=== PATIENT | male | born 1960 | race Caucasian/White ===

== ENCOUNTER 2019-06-18 10:40 | Outpatient (RCR) | payer BC, SELFPAY ==
[2019-05-30 11:13] VITALS: BMI 23.1
== END 2019-09-16 23:59 | disposition home or self-care (01) ==
LOC: ANHDMC 10:40
PROVIDERS: Visit Provider Internal Medicine
DX: E11.40 Type 2 diabetes mellitus with diabetic neuropathy, unspecified (principal); I69.854 Hemiplegia and hemiparesis following other cerebrovascular disease affecting left non-dominant side; R26.89 Other abnormalities of gait and mobility; Z71.3 Dietary counseling and surveillance; Z71.89 Other specified counseling
CPT/HCPCS: 97802; G0108

== ENCOUNTER 2019-10-17 09:03 | Outpatient (CLI) | payer BC, SELFPAY ==
--- NOTE | ~2019-10-17 | DEXA_ITS ---
Bone Density Report Name: Ubaldo Velasquez Age: 59 Sex: Male Ethnicity: White Date of : 1960 Indication: prior fracture; Referring Provider: Spencer, Fercho Lindsay Study: Bone densitometry was performed. Exam Date: October 17, 2019 Accession number: [id number] Bone Density: Region BMD T-score Z-score Classification AP Spine (L1-L4) 0.814 -2.5 -1.8 Osteoporosis Femoral Neck (Left) 0.432 -3.7 -2.7 Osteoporosis Total Hip (Left) 0.583 -3.0 -2.5 Osteoporosis World Health Organization criteria for BMD impression classify patients as: Normal (T-score at or above -1.0), Osteopenia (T-score between -1.0 and -2.5), or Osteoporosis (T-score at or below -2.5). 10-year Fracture Risk: FRAX not reported because: Some T-score for Spine Total or Hip Total or Femoral Neck at or below -2.5 Prior hip or vertebral fracture Clinical Information Provided by Patient: Have had a previous hip or vertebral fracture Has had a low trauma fracture Patient maximum height was 70 No regular weight bearing exercise Drinks caffeinated beverages Impression: The patient has established osteoporosis, based on the Left Femoral Neck T-score and the existence of a prior fracture. The patient has risk factors, including: previous fracture. Discussion: HIGH RISK OF FRACTURE. BONE DENSITY IS UNDESIRABLY LOW AT ONE OR MORE SKELETAL SITES, CONSISTENT WITH OSTEOPOROSIS. This patient's lowest T-score, in a patient who has previously fractured, meets the World Health Organization's (WHO) criteria for severe osteoporosis. In untreated patients, the risk of osteoporotic fracture increases approximately two-fold for each 1.0 SD decrease in T-score. Low bone density is not the only risk factor for fracture; also consider factors such as patient's age, frailty or poor health, risk of falling, risk of injury, previous osteoporotic fracture, family history of osteoporosis, cigarette smoking, low body weight, etc. Not everyone with low bone mineral density has osteoporosis; osteomalacia and other metabolic bone disorders should also be considered. Patients who have osteoporosis should be evaluated for specific diseases and conditions (secondary causes) that may cause or contribute to bone loss. The National Osteoporosis Foundation (NOF) recommends pharmacologic intervention for men with BMD at this level (a T-score of -2.5 or below). The patient should follow a healthful lifestyle (good nutrition with adequate calcium and vitamin D, and appropriate weight-bearing exercise). Follow-Up: Consider a repeat BMD and Vertebral Fracture Assessment (VFA) exam in 2 years or sooner if medically necessary, to reassess this patient's status. Reported by: CONNER on 10/17/2019 9:58:00 AM. Reviewed, dictated and finalized at location APavithra ANDERSON
== END 2019-10-17 09:04 | disposition home or self-care (01) ==
PROVIDERS: PCP Internal Medicine; Visit Provider Internal Medicine
DX: M81.0 Age-related osteoporosis without current pathological fracture (principal)
CPT/HCPCS: 77080

== ENCOUNTER 2020-03-01 03:28 | Inpatient (IN) | payer BC, SELFPAY ==
[2020-03-01] VITALS (38 sets, daily range): BP systolic 88–103; BP diastolic 32–55; PULSE 52–87; RESP 15–22; TEMP 35.8–37.8; O2SAT 90–100; BMI 27.3
--- NOTE | ~2020-03-01 | US_ITS ---
US right upper quadrant INDICATION: Elevated liver function tests PROCEDURE: Realtime right upper abdominal ultrasound. COMPARISON: No prior studies for comparison. FINDINGS: The pancreas is normal without focal mass or pancreatic ductal dilation. Liver echotexture is increased, consistent with fatty infiltration. There is normal directional flow in the portal ve in. The gallbladder is normal without stones, gallbladder wall thickening or pericholecystic fluid. Comm on bile duct measures 4 mm. No sonographic Lentz's sign. IMPRESSION: 1: Hepatic steatosis. Reviewed, dictated and finalized at location A. IMPRESSION: 1: Hepatic steatosis.
--- NOTE | ~2020-03-01 | CT_ITS ---
EXAMINATION: CT abdomen pelvis wo con DATE: 03/01/2020 05:18 INDICATION: Transaminitis TECHNIQUE: Computed tomography (CT) of the abdomen and pelvis was performed without intravenous contr ast. The dose-length product (DLP) was 1203.35 mGy-cm. Automated exposure control and iterative recon struction technique were employed. COMPARISON: 06/07/2019 FINDINGS: There are small pleural effusions, left greater than right, with associated passive atelect asis of the lower lobes. Cardiomegaly is noted. Hypoattenuation of the liver adjacent to the ligament um teres is consistent with focal fatty infiltration. The spleen, gallbladder, and adrenal glands are normal. There is fatty replacement of the pancreas. Nonobstructing stones of the left kidney measure up to 3 mm. The right kidney is unremarkable. There is calcified atherosclerosis of the aorta and ma ny of the other arteries. The appendix is normal. There is wall thickening of the rectum. There is bi lateral inguinal lymphadenopathy. There is mild lumbar spondylosis. There is circumferential thickeni ng of the bladder wall. IMPRESSION: 1. Rectal wall thickening which could reflect colitis or possibly neoplasm. Recommend correlation wit h colonoscopy history. 2. Circumferential bladder wall thickening which can be seen in the setting of cystitis or chronic ou tlet obstruction. 3. Bilateral lymphadenopathy, likely reactive. 4. Small pleural effusions with bibasilar atelectasis. Reviewed, dictated and finalized at location A. IMPRESSION: 1. Rectal wall thickening which could reflect colitis or possibly neoplasm. Rec ommend correlation with colonoscopy history. 2. Circumferential bladder wall thickening which can be seen in the setting of cystitis or chronic outlet obstruction. 3. Bilateral lymphadenopathy, likely reactive. 4. Small pleural effusions with bibasilar atelectasis.
--- NOTE | ~2020-03-01 | XR_ITS ---
EXAMINATION: XR chest 1V portable INDICATION: Shortness of breath TECHNIQUE: Portable AP chest at 0414 hours COMPARISON: 06/07/2019 FINDINGS: There is mild atelectasis of the lung bases. A small left pleural effusion is present. Card iomegaly is noted. There is no pneumothorax. A right upper extremity PICC courses into and coils in t he right neck. Median sternotomy wires and mediastinal surgical clips are seen, likely from prior cor onary artery bypass grafting. A cardiac monitoring device projects over the left lower chest wall. IMPRESSION: 1. Bibasilar atelectasis. 2. Small left pleural effusion. 3. Right upper extremity PICC coursing into the right neck. This finding was discussed with Lori Simpson at 1008 hours on 03/01/2020. Reviewed, dictated and finalized at location A. IMPRESSION: 1. Bibasilar atelectasis. 2. Small left pleural effusion. 3. Right upper extremity PICC coursing into the right neck. This finding was di scussed with ESEQUIEL Simpson at 1008 hours on 03/01/2020.
--- NOTE | ~2020-03-01 | XR_ITS ---
EXAMINATION: XR chest port-a-cath/central DATE: 03/02/2020 13:44 INDICATION: Central line placement. TECHNIQUE: A single frontal view of the chest was obtained. COMPARISON: Chest 1 view 03/01/2020, CT abdomen and pelvis 03/01/2020 FINDINGS: There is mild atelectasis at left lung base. No pleural effusion or pneumothorax. The heart size is normal. Median sternotomy wires and mediastinal surgical clips are seen, likely from prior c oronary artery bypass grafting. A left internal jugular central venous catheter is seen with tip at t he superior cavoatrial junction. A right upper extremity peripherally inserted central venous cathete r (PICC) is seen with tip folded on itself in the right internal jugular vein. IMPRESSION: 1. Central line tip at superior cavoatrial junction. 2. PICC tip folded on itself in the right internal jugular vein. 3. Mild atelectasis at left lung base. Reviewed, dictated and finalized at location B.
--- NOTE | ~2020-03-01 | CT_ITS ---
EXAMINATION: CT brain wo con EXAM DATE: 03/06/2020 13:15 INDICATION: Change in neuro status, change in pupils. TECHNIQUE: Spiral CT of the head was performed without contrast. Axial, coronal and sagittal images were reviewed. The dose-length product (DLP) for this examination was 681.00 mGy-cm. The exposure w as tailored according to patient size, and iterative reconstruction (ASIR) was used as additional dos e reduction technique. Comparison is made to prior examination from 02/19/2019. FINDINGS: Interval development of hypodensity within the right cerebellum measuring about 1 cm, consi stent with subacute to chronic infarction, new compared to last year. Punctate old right thalamic lac unar infarctions which are unchanged. There is old small right frontal lobe infarction. Mild microang iopathy and moderate cerebral atrophy. No extra-axial collections, mass or acute intracranial hemorrh age. Right-sided cataract surgery. IMPRESSION: 1. 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 2. 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 Age related findings. Reviewed, dictated and finalized at location A. IMPRESSION: 1. Interval development of small right cerebellar infarction, probably subacut e to chronic in age. 2. 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 Age related findings.
--- NOTE | ~2020-03-01 | US_ITS ---
EXAMINATION: US renal BI DATE: 03/01/2020 14:23 INDICATION: Acute kidney injury TECHNIQUE: Multiple grayscale and Doppler ultrasound images of the kidneys were obtained. COMPARISON: None. FINDINGS: The right kidney measures 11.0 x 6.0 x 7.0 cm. The left kidney measures 11.0 x 5.6 x 5.3 cm . The kidneys demonstrate normal parenchymal echogenicity. There is no hydronephrosis. The bladder is incompletely distended but appears to demonstrate diffuse wall thickening.. IMPRESSION: 1. Normal kidneys without hydronephrosis. 2. Apparent wall thickening of the bladder which could reflect cystitis or chronic outlet obstruction . Reviewed, dictated and finalized at location A. IMPRESSION: 1. Normal kidneys without hydronephrosis. 2. Apparent wall thickening of the bladder which could reflect cystitis or market research intern dylan outlet obstruction.
--- NOTE | ~2020-03-01 | XR_ITS ---
EXAMINATION: XR foot RT 2V DATE: 03/02/2020 13:44 INDICATION: Right foot pain. Osteomyelitis. TECHNIQUE: 2 views of right foot were obtained. COMPARISON: Right ankle radiographs 11/10/2018 FINDINGS: There are extensive erosions of the right calcaneal tuberosity. Osteopenia is noted. No fra cture. There is mild osteoarthritis of some the interphalangeal joints. Vascular calcifications are n oted. IMPRESSION: 1. Extensive erosions of right calcaneal tuberosity, consistent with osteomyelitis. Reviewed, dictated and finalized at location B. IMPRESSION: 1. Extensive erosions of right calcaneal tuberosity, consistent with osteomyeli tis.
--- NOTE | ~2020-03-01 | XR_ITS ---
EXAMINATION: XR chest 1V portable EXAM DATE: 03/03/2020 05:59 INDICATION: Pneumonia. Sepsis. TECHNIQUE: Portable AP frontal chest x-ray was obtained. Comparison is made to prior examination from 03/02/2020. FINDINGS: Small amount of left basilar atelectasis or pneumonia. There is a left-sided IJ venous line . The cardiomediastinal silhouette is prominent but magnified on this AP technique. There is no pneum othorax suspected. There are no pleural effusions. Sternotomy wires are present without findings to s uggest sternal dehiscence. Accounting for differences in technique, there is no significant interval change. IMPRESSION: Small amount of left basilar atelectasis or pneumonia unchanged. Reviewed, dictated and finalized at location A.
--- NOTE | ~2020-03-01 | XR_ITS ---
EXAMINATION: XR chest 1V portable DATE: 03/04/2020 06:30 INDICATION: Sepsis. TECHNIQUE: A single frontal view of the chest was obtained. COMPARISON: Chest one view 03/03/2020, CT abdomen and pelvis 03/01/2020 FINDINGS: There are airspace opacities in the lower lung zones. No pleural effusion or pneumothorax. The heart size is normal. Median sternotomy wires and mediastinal surgical clips are seen, likely fro m prior coronary artery bypass grafting. A left internal jugular central venous catheter is seen with tip at the superior cavoatrial junction. There is an electronic implant in left anterior chest wall. IMPRESSION: 1. Airspace opacities in the lower lung zones with slight worsening on the left, consistent with atel ectasis versus pneumonia. Reviewed, dictated and finalized at location B. IMPRESSION: 1. Airspace opacities in the lower lung zones with slight worsening on the left , consistent with atelectasis versus pneumonia.
--- NOTE | 2020-03-01 03:33 | ECG_ITS ---
Measurements Intervals [place] Rate: 77 P: 61 AR: 151 QRS: 61 QRSD: 86 T: 15 QT: 392 QTc: 445 Interpretive Statements SINUS RHYTHM ATRIAL AND VENTRICULAR PREMATURE COMPLEXES LOW QRS VOLTAGE IN LIMB LEADS BORDERLINE ST ABNORMALITY- INF/LAT LEADS BASELINE ARTIFACT- III, AVF BORDERLINE ECG Electronically Signed On 03-01-2020 13:36:33 CDT by Sabino Caldwell D.O.
[2020-03-01 04:09] LABS: Basophils Percent Auto 0.2 % (0.2-1.2); Eosinophils Absolute Auto 0.2 K/mm3 (0-0.3); Eosinophils Percent Auto 2.6 % (0-4.4); Hematocrit 29.6 % (42.0-52.0); Hemoglobin 9.5 g/dL (14.0-18.0); Immature Granulocyte Absolute 0.07 K/mm3 (0.00-0.031); Immature Granulocyte Percent A 0.8 % (0-0.5); Lymphocytes Absolute Auto 2.58 K/mm3 (0.9-3.2); Mean Corpuscular HGB Conc 32.1 g/dl (32-36); Mean Corpuscular Hemoglobin 26.2 pg (26-34); Mean Corpuscular Volume 81.5 fl (80-100); Mean Platelet Volume 10.8 fl (7.4-10.4); Monocytes Absolute Auto 0.6 K/mm3 (0.1-0.6); Monocytes Percent Auto 6.9 % (2.6-8.5); Neutrophils Absolute Auto 5.7 K/mm3 (1.3-6.7); Neutrophils Percent Auto 61.5 % (45.5-73.1); Platelet Count Result 247 k/mm3 (150-375); Red Blood Count 3.63 M/mm3 (4.6-6.20); Red Cell Distribution Width 17.1 % (11.5-14.5); White Blood Count 9.2 K/mm3 (4.5-10.0)
--- NOTE | 2020-03-01 04:18 | ED.AMS ---
HPI - Altered Mental Status General Chief Complaint: Altered Mental Status Stated Complaint: AMS Time Seen by Provider: 03/01/20 03:32 History of Present Illness HPI narrative: Patient is a 60-year-old man who presents the ER from his correction with a new rash, new confusion, new shortness of breath. He is febrile there. He is recently had surgery on his right foot for a pressure ulcer and is on vancomycin IV. Patient is pretty much only alert to self at this time. He has no complaints pain. Rash is red and predominantly located to the chest face and somewhat the arms. There is some petechiae to the upper extremities as well. Patient also appears to have edema to the lips and eyes and face. Related Data Home Medications Medication Instructions Recorded Confirmed Entresto 1 tablet PO DAILY 06/07/19 06/07/19 Tresiba FlexTouch U-200 36 unit SUBCUT DAILY 06/07/19 06/07/19 omeprazole 40 mg PO DAILY 06/07/19 06/07/19 rosuvastatin [Crestor] 10 mg PO DAILY 06/09/19 06/09/19 cyanocobalamin (vitamin B-12) 1,000 mcg IM MONTHLY 08/07/19 1,000 mcg/mL injection solution docusate sodium 100 mg capsule 100 mg PO DAILY 08/07/19 ergocalciferol (vitamin D2) 1,250 1,250 mcg PO WEEKLY 08/07/19 mcg (50,000 unit) capsule Lactobacillus acidophilus 03/01/20 [Acidophilus] arginine-vitamin C-vitamin E g 03/01/20 [Arginaid] cefepime 1 g IM Q12H 03/01/20 escitalopram oxalate [Lexapro] 10 mg PO DAILY 03/01/20 glucagon HCl [Glucagon (HCl) 03/01/20 Emergency Kit] metoprolol succinate PO 03/01/20 tkefchqjuhlb-kza-tpyl-FA-vit K tablet PO 03/01/20 [Adults Multivitamin] nystatin 1 applic TOPICAL BID 03/01/20 ondansetron HCl 03/01/20 oxycodone-acetaminophen 03/01/20 tamsulosin mg PO 03/01/20 vancomycin in 0.9 % sodium chl 1 g IV Q24H 03/01/20 Allergies Allergy/AdvReac Type Severity Reaction Status Date / Time No Known Allergies Allergy Verified 03/01/20 03:40 Review of Systems Review of Systems: ROS unobtainable: Yes unobtainable due to mental status PMFSH Social History Social History (Updated 03/01/20 @ 04:22 by Nomi Ocampo MD) Social History: 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 Currently resides at [place]. He very rarely drinks alcohol. He is a lifelong nonsmoker and does not use illicit substances. Code status is Do Not Resuscitate. Smoking status: Never smoker Alcohol intake: never Substance use: never Gender identity (if verbalized by the patient): Male Spiritual care concerns: No Exam Narrative: Exam Narrative: GENERAL: Chronically ill-appearing, well-nourished, and in no acute distress. HEAD: Normocephalic, atraumatic. EYES: PERRL and EOMI. mild edema around the eyes. ENT: Mucous membranes moist. Edema of bilateral lips. CHEST: Clear to auscultation. No respiratory distress. HEART: Regular rate and rhythm. Normal peripheral pulses. ABDOMEN: Soft, nontender, nondistended. EXTREMITIES: Right lower extremity with a bootie on it to protect a recent surgical site, no apparent cellulitis. 2+ edema. SKIN: Warm, dry. Blanching red rash to the chest and upper extremities down to the shoulders. Petechial rash is nonblanching bilateral hands. Face also has slight redness. NEURO: Alert and oriented x1. Course Course Emergency Course: Concerns of patient's redness and swelling could be related to an red man syndrome or more concerning vasculitis related to the vancomycin given new renal failure as well as transaminitis. I contacted the patient's daughter regarding his condition. Discussed possibility of needing dialysis. She thinks he may be okay with short-term trial on dialysis but would like to be contacted further. Patient be admitted to hospitalist service. Nephrology consulted. Patient is receiving Benadryl in case this is red man syndrome. Concerned about giving steroids at this time for possible vascu
--- NOTE | 2020-03-01 04:20 | PC.NURSE ---
Patient O2 sat at 88%-89%, patient placed on 2L of oxygen via NC. ERP aware.
[2020-03-01 04:24] LABS: Alanine Aminotransferase 522 U/L (4-50); Albumin Level 2.5 g/dL (3.5-5.1); Alkaline Phosphatase 1281 U/L (38-126); Anion Gap 12 mmol/L (8-16); Aspartate Amino Transferase 506 U/L (17-59); Bilirubin,Total 1.5 mg/dL (0.2-1.3); Blood Urea Nitrogen 57 mg/dL (9-20); Calcium 7.7 mg/dL (8.4-10.2); Carbon Dioxide 17 mmol/L (22-30); Chloride 106 mmol/L (98-107); Estimated CRCL calculation 15 ml/min; Estimated Glomerular Filt Rate 12; Glucose 262 mg/dL (75-110); Potassium 4.4 mmol/L (3.4-5.0); Sodium 135 mmol/L (137-145)
[2020-03-01 04:25] LABS: INR 1.6
[2020-03-01 04:26] LABS: Partial Thromboplastin Time 35.7 SECONDS (22.3-36.8)
--- NOTE | 2020-03-01 04:30 | PC.NURSE ---
This nurse contacts [facility] and speaks with MARCIANO Garcia, patient's primary nurse, in regards to patient and his status. Radha also informs this nurse on the physician who performed the patient's surgery and where it was performed. Radha states the surgery was done at [facility] performed by Mike Duarte and was done on 02/21/2020. Radha states he wasn't like that earlier, I got here at 1800 tonight and he didn't look like that when I got there.
[2020-03-01 04:33] LABS: Platelet Estimate Adequate (Adequate)
[2020-03-01 04:35] LABS: Macrocytosis 1+ (NORMAL); Microcytosis 1+ (NORMAL); Ovalocytes 1+ (NORMAL)
[2020-03-01 04:45] LABS: NT Pro B Type Natriuretic Pept 3510 PG/ML (5-100)
[2020-03-01 05:40] LABS: Add Urine Microscopic? YES; Appearance Urine Turbid (Clear); Bacteria Urine Trace /hpf; Bilirubin Urine Negative (Negative); Blood Urine Negative (Negative); Color Urine Amber (Yellow); Glucose Urine UA Negative (Negative); Ketones Urine Trace mg/dL (Negative); Leukocyte Esterase Ur Negative LEU/UL (Negative); Mucus Urine Rare /lpf; Nitrate Urine Negative (Negative); Protein Urine 2+ mg/dL (Negative); Specific Grav Ur 1.018 (1.001-1.035); Squamous Epithelial Cell Urine Occasional /hpf (Few); Urobilinogen Urine Negative mg/dL (<2.0)
--- NOTE | 2020-03-01 06:01 | PC.NURSE ---
Radha, patient's primary nurse at [facility] calls to get update on patient's status. This nurse requested to have patient's advanced directive faxed over.
[2020-03-01] MEDS: diphenhydrAMINE HCl INJ 50 MG/ML VIAL 25 MG IV PUSH ×2 (06:35→13:59)
[2020-03-01] MEDS: SODIUM CHLORIDE 0.9% IV 250 ML 999 ML (06:36)
--- NOTE | 2020-03-01 08:01 | ADMGEN ---
This patient, Ubaldo Velasquez, was admitted to IMU Room 211-01. Patient/family oriented to hospital policies and general routines including ID bracelet, bed and alarms, visiting hours, pain management, procedures, bathroom and other care routines, personal items, smoking policy, room service/diet, and visiting hours. Valuables list has been completed. Information on how to activate the Rapid Response Team has been discussed. Patient/Family are encouraged to report perceived risks to care and to ask questions if they do not understand what they are told or what they should do.
[2020-03-01 09:56] LABS: Hepatitis B Surface Antigen Negative (Negative)
[2020-03-01 10:01] LABS: HAV RESULT Negative (Negative); Hepatitis B Core IgM Result Negative (Negative)
[2020-03-01 10:13] LABS: Hepatitis C Virus Antibody Negative (Negative)
[2020-03-01 10:56] LABS: Glucose Point of Care 245 (65-105)
[2020-03-01] MEDS: INSULIN ASPART (*BKC) 100 UNITS/ML 15 UNITS SUB-Q ×2 (12:13→15:50)
[2020-03-01] MEDS: INSULIN ASPART (*BKC) 100 UNITS/ML SUB-Q ×2 (12:13→15:50)
--- NOTE | 2020-03-01 12:39 | PC.NURSE ---
Spoke with Dr Marshall. Notified him regarding patient PICC has incorrect placement and is not useable. He said he would call me back with orders regarding PICC.
--- NOTE | 2020-03-01 12:46 | PC.NURSE ---
Dr. Ashton said to leave PICC line in and have it repositioned by PICC nurse.
[2020-03-01] MEDS: TOLNAFTATE 1% POWDER 45 GM BTL 1 APPLIC TOPICAL ×2 (13:07→21:56)
--- NOTE | 2020-03-01 13:18 | PCSTNOTE ---
Bedside swallow evaluation complete. Please see ST evaluation and swallow precautions/recommendations for further details.
[2020-03-01] MEDS: FAMOTIDINE 20 MG/2 ML VIAL IV PUSH (14:00)
[2020-03-01 15:34] LABS: Glucose Point of Care 210 (65-105)
[2020-03-01] MEDS: SODIUM CHLORIDE 0.9% IV 1,000 ML 50 ML IV CONT (15:42)
[2020-03-01 16:05] LABS: Add Urine Microscopic? YES; Appearance Urine Turbid (Clear); Bilirubin Urine Negative (Negative); Blood Urine Negative (Negative); Color Urine Yellow (Yellow); Glucose Urine UA Negative (Negative); Ketones Urine Negative (Negative); Leukocyte Esterase Ur Negative LEU/UL (NEGATIVE); Nitrate Urine Negative (Negative); Protein Urine 2+ mg/dL (Negative); Specific Grav Ur 1.018 (1.001-1.035); Urobilinogen Urine Negative mg/dL (<2.0)
--- NOTE | 2020-03-01 17:11 | PM.IMHP ---
H&P: HPI History of Present Illness Date/Time: 03/01/20 17:11 Chief complaint: renal failure,pneumonia,osteomyelitis,vaculitis vs Narrative: Ubaldo Velasquez is a 60 year old male with history of type 1 diabetes poorly controlled status post CVA with confusion difficulty with the speech patient has been seen by orthopedic surgeon and had a wound debridement was concern for osteomyelitis and patient is treated with vancomycin and presented emergency department with generalized rash and petechiae and emergency physician suspected the patient has red man syndrome from vancomycin, vancomycin is stopped not being treated with a Zosyn for osteomyelitis, is also found to acute kidney injury with BUN 57 and creatinine of 5 most likely secondary to vancomycin his kidney function was essentially normal in May of 2019, patient is seen by structural metal worker further recommendation to follow. patient is also having dysphagia, is NPO, below the modified swallow study tomorrow. 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 Currently resides at [place]. He very rarely drinks alcohol. He is a lifelong nonsmoker and does not use illicit substances. Code status is Do Not Resuscitate. Smoking status: Never smoker Alcohol intake: never Substance use: never Substance use type: does not use Gender identity (if verbalized by the patient): Male Spiritual care concerns: No Meds Home Medications and Allergies Home Medications Medication Instructions Recorded Confirmed Type Entresto 1 tablet PO DAILY 06/07/19 03/01/20 History Tresiba FlexTouch U-200 36 unit SUBCUT DAILY 06/07/19 03/01/20 History omeprazole 40 mg PO DAILY 06/07/19 03/01/20 History rosuvastatin [Crestor] 10 mg PO DAILY 06/09/19 03/01/20 History acetaminophen [Mapap 650 mg PO Q6H PRN #30 tablet 06/11/19 03/01/20 Rx (acetaminophen)] hydrocodone-acetaminophen 1 tablet PO Q6H PRN #10 tablet 06/11/19 03/01/20 Rx insulin aspart U-100 [Novolog 2 - 5 unit SUBCUT TIDWM #10 ml 06/11/19 03/01/20 Rx U-100 Insulin aspart] cyanocobalamin (vitamin B-12) 1,000 mcg IM MONTHLY 08/07/19 03/01/20 History 1,000 mcg/mL injection solution ergocalciferol (vitamin D2) 1,250 1,250 mcg PO WEEKLY 08/07/19 03/01/20 History mcg (50,000 unit) capsule Adult Low Dose Aspirin 81 mg PO DAILY 03/01/20 03/01/20 History Lactobacillus acidophilus 1 mg PO BID 03/01/20 03/01/20 History [Acidophilus] arginine-vitamin C-vitamin E 1,000 g PO DAILY 03/01/20 03/01/20 History [Arginaid] cefepime 1 g IM Q12H 03/01/20 03/01/20 History escitalopram oxalate [Lexapro] 10 mg PO DAILY 03/01/20 03/01/20 History glucagon HCl [Glucagon (HCl) 1 mg IM PRN 03/01/20 03/01/20 History Emergency Kit] insulin aspart U-100 [Novolog 15 unit SUBCUT TIDWM 03/01/20 03/01/20 History Flexpen U-100 Insulin] metoprolol succinate 50 mg PO DAILY 03/01/20 03/01/20 History sxwpncxhkeye-nbv-zdkg-FA-vit K 1 tablet PO DAILY 03/01/20 03/01/20 History [Adults Multivitamin] nystatin 1 applic TOPICAL BID 03/01/20 03/01/20 History ondansetron HCl 4 mg PO PRN 03/01/20 03/01/20 History oxycodone-acetaminophen 03/01/20 History tamsulosin mg PO 03/01/20 History vancomycin in 0.9 % sodium chl 1 g IV Q24H 03/01/20 03/01/20 History Allergies Allergy/AdvReac Type Severity Reaction Status Date / Time No Known Allergies Allergy Verified 03/01/20 03:40 Vital Signs Vital Signs - 24 hr 03/01/20 03:29 03/01/20 03:37 03/01/20 03
[2020-03-01 17:39] LABS: Creatinine Urine 188.2 mg/dL; Total Protein Urine Random 72 mg/dL
--- NOTE | 2020-03-01 17:40 | PC.NURSE ---
Tr This patient, Ubaldo Velasquez, was transferred to [301 ] on 03/01/20 at 1740. Personal belongings sent with patient. Belongings list checked and signed with receiving [X ]. Report given to [Carlos ]. Appropriate documentation sent with patient. Transferred patient to 301 by bed. Room air, Vital signs stable. Spoke with Dr Marshall regarding Transfer.
--- NOTE | 2020-03-01 17:41 | PC.NURSE ---
This patient, Ubaldo Velasquez, was received from [facility] on 03/01/20 at 1730. Personal belongings list checked and signed. Patient/family oriented to unit policies and routines
[2020-03-01 17:43] LABS: Sodium Urine Random 45 meq/L
[2020-03-01 18:12] LABS: Glucose Point of Care 112 (65-105)
[2020-03-01] MEDS: SODIUM CHLORIDE 0.9% IV 500 ML IV CONT (21:44)
[2020-03-01] MEDS: ACETAMINOPHEN 650 MG SUPPOSITORY RECTAL (21:55)
[2020-03-02] VITALS (35 sets, daily range): BP systolic 85–111; BP diastolic 38–70; PULSE 80–112; RESP 16–25; TEMP 36.4–37.4; O2SAT 97–100; BMI 27.3
[2020-03-02 00:10] LABS: Glucose Point of Care 85 (65-105)
[2020-03-02 00:10] LABS: Glucose Point of Care 76 (65-105)
--- NOTE | 2020-03-02 01:28 | PC.NURSE ---
pt has not had any urine output so far this shift and is status post x 1 500ml ivf bolus. this rn did a bladder scan but it only showed 71cc. will notify .
[2020-03-02] MEDS: SODIUM CHLORIDE 0.9% IV 500 ML 250 ML IV CONT (03:04)
[2020-03-02 06:35] LABS: Hematocrit 30.1 % (42.0-52.0); Hemoglobin 9.7 g/dL (14.0-18.0); Mean Corpuscular HGB Conc 32.2 g/dl (32-36); Mean Corpuscular Hemoglobin 26.3 pg (26-34); Mean Corpuscular Volume 81.6 fl (80-100); Mean Platelet Volume 11.1 fl (7.4-10.4); Platelet Count Result 260 k/mm3 (150-375); Red Blood Count 3.69 M/mm3 (4.6-6.20); Red Cell Distribution Width 17.7 % (11.5-14.5); White Blood Count 14.6 K/mm3 (4.5-10.0)
--- NOTE | 2020-03-02 06:36 | PC.NURSE ---
pt 's b/p dropped again to 82/39, notified md and received an order to give 250 cc bolus x1 now.
[2020-03-02 06:53] LABS: Complement C3 84 mg/dL (88-165)
[2020-03-02 07:00] LABS: Glucose Point of Care 128 (65-105)
[2020-03-02 07:12] LABS: Alanine Aminotransferase 278 U/L (4-50); Albumin Level 2.3 g/dL (3.5-5.1); Alkaline Phosphatase 766 U/L (38-126); Anion Gap 13 mmol/L (8-16); Aspartate Amino Transferase 108 U/L (17-59); Bilirubin,Total 1.3 mg/dL (0.2-1.3); Blood Urea Nitrogen 73 mg/dL (9-20); Calcium 7.5 mg/dL (8.4-10.2); Carbon Dioxide 15 mmol/L (22-30); Chloride 109 mmol/L (98-107); Estimated CRCL calculation 11 ml/min; Estimated Glomerular Filt Rate 8; Glucose 117 mg/dL (75-110); Phosphorus 4.8 mg/dL (2.5-4.5); Potassium 4.4 mmol/L (3.4-5.0); Sodium 137 mmol/L (137-145)
--- NOTE | 2020-03-02 07:29 | WPDURCON ---
Assessment and Plan Assessment and plan (1) Bladder wall thickening: Code(s): N32.89 - Other specified disorders of bladder Status: Acute Assessment and Plan: etiology could be chronic BPH. Currently he has a low residual urine although this could be secondary to his low urine output. His bladder wall thickening could be neurogenic in origin due to his history of CVA. neoplasm is unlikely in this senerio. Currently no urologic intervention needed. Bladder wall thickening could be evaluated further with an outpatient cystoscopy once the acute situation resolves (2) Acute kidney injury: Code(s): N17.9 - Acute kidney failure, unspecified Status: Acute Assessment and Plan: of non urologic origin (3) Microscopic hematuria: Code(s): R31.29 - Other microscopic hematuria Status: Acute Assessment and Plan: outpatient evaluation Urology Consult Note HPI Date Seen: 03/02/20 Requesting Physician: Maty Valles DO Primary Care Provider: Mike Duarte, Consult Narrative Narrative: Ubaldo Velasquez is a 60 year old male Whom I am seeing at the request of the hospitalist service. He currently is in acute renal failure with a creatinine of over 6. Renal ultrasound shows no hydronephrosis. He has circumferential bladder wall thickening. His urinalysis shows microscopic hematuria but no signs of infection. He has history of stroke which could lead to neurogenic bladder and bladder wall thickening. I am unable to obtain any other further history due to his altered mental status. There is no family present in the room only nursing. They tell me he is making very little urine. He was straight cathed yesterday with a residual urine of only 100 cc documenting lack of urinary retention. Nephrology has been consulted and is following the patient. 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 Currently resides at [place]. He very rarely drinks alcohol. He is a lifelong nonsmoker and does not use illicit substances. Code status is Do Not Resuscitate. Smoking status: Never smoker Alcohol intake: never Substance use: never Substance use type: does not use Gender identity (if verbalized by the patient): Male Spiritual care concerns: No Meds Home Medications and Allergies Home Medications Medication Instructions Recorded Confirmed Type Entresto 1 tablet PO DAILY 06/07/19 03/01/20 History Tresiba FlexTouch U-200 36 unit SUBCUT DAILY 06/07/19 03/01/20 History omeprazole 40 mg PO DAILY 06/07/19 03/01/20 History rosuvastatin [Crestor] 10 mg PO DAILY 06/09/19 03/01/20 History acetaminophen [Mapap 650 mg PO Q6H PRN #30 tablet 06/11/19 03/01/20 Rx (acetaminophen)] hydrocodone-acetaminophen 1 tablet PO Q6H PRN #10 tablet 06/11/19 03/01/20 Rx insulin aspart U-100 [Novolog 2 - 5 unit SUBCUT TIDWM #10 ml 06/11/19 03/01/20 Rx U-100 Insulin aspart] cyanocobalamin (vitamin B-12) 1,000 mcg IM MONTHLY 08/07/19 03/01/20 History 1,000 mcg/mL injection solution ergocalciferol (vitamin D2) 1,250 1,250 mcg PO WEEKLY 08/07/19 03/01/20 History mcg (50,000 unit) capsule Adult Low Dose Aspirin 81 mg PO DAILY 03/01/20 03/01/20 History Lactobacillus acidophilus 1 mg PO BID 03/01/20 03/01/20 History [Acidophilus] arginine-vitamin C-vitamin E 1,000 g PO DAILY 03/01/20 03/01/20 History [Arginaid] cefepime 1 g IM Q12H 03/01/20 03/01/20 History escitalopram oxalate [Lexapro] 10 mg PO DAILY 03/01/20 03/01/20 History glucagon HCl [Glucagon (HCl) 1 mg IM PRN 03/01/20 03/01/20 History Emergency Kit] insulin aspart U-100 [Novolog 15 unit S
[2020-03-02 08:43] LABS: Alveolar/Arterial O2 Gradient 63.4 mmHg; Fractional Inspired Oxygen 26 %; HCO3 ABG 13.7 mEq/l (22.0-26.0); Modified Allen's Test Pass; Oxygen Content ABG 14.1 %vol (16.0-22.0); Oxygen Saturation ABG 96.4 % (95.0-100.0); Oxyhemoglobin 94.6 % THb (90.0-100.0); PCO2 ABG 27.1 mmHg (35.0-45.0); PO2 ABG 89.9 mmHg (80.0-100.0); PO2 FiO2 Ratio Arterial Blood 3.46 %; Site Drawn RIGHT RADIAL; Total Hemoglobin 10.5 g/dL (12.0-18.0); pH ABG 7.322 (7.350-7.450)
[2020-03-02 08:44] LABS: Device NASAL CANNULA; Liters per Minute 1.5 LPM
[2020-03-02] MEDS: SODIUM CHLORIDE 0.9% IV 1,000 ML 250 ML IV CONT (09:30)
[2020-03-02 09:33] LABS: Hepatitis B Surface Anti Res Negative
--- NOTE | 2020-03-02 09:56 | WPDCNINT ---
Assessment and Plan Assessment and plan (1) Sepsis: Code(s): A41.9 - Sepsis, unspecified organism Status: Acute Assessment and Plan: patient presented with altered mental status, acute kidney injury, leukocytosis, hypotension, osteomyelitis - normal lactic acid level - adequate IV fluids were given to the patient in the ICU with improvement in blood pressures - patient currently on Zosyn - will consult Infectious Disease (2) Acute kidney injury: Code(s): N17.9 - Acute kidney failure, unspecified Status: Acute Assessment and Plan: patient with acute kidney injury could be related to vancomycin, hypotension - discussed with daughter and candy roller, will place dialysis catheter and start dialysis - patient receive adequate IV fluids after being brought down to the ICU - will continue to monitor renal function, electrolytes and urine output (3) Rash: Code(s): R21 - Rash and other nonspecific skin eruption Status: Acute Assessment and Plan: rash after so starting vancomycin, likely red man syndrome or allergic reaction to vancomycin - will place patient on Solu-Medrol and Pepcid. Will avoid Benadryl IV due to his mental status - patient not able to take any p.o. at this time is to cannot give him loratadine or cetirizine (4) Transaminitis: Code(s): R74.0 - Nonspecific elevation of levels of transaminase and lactic acid dehydrogenase [LDH] Status: Acute Assessment and Plan: elevated liver enzymes likely related to hypotension - will place triple-lumen dialysis catheter, if patient requires Levophed will start pressors and maintain MAP > 65 mmHg (5) Bladder wall thickening: Code(s): N32.89 - Other specified disorders of bladder Status: Acute Assessment and Plan: CT scan of the abdomen and pelvis showed bladder wall thickening, appreciate urology evaluation - this could be related to chronic BPH, neurogenic secondary to his history of CVA (6) DVT prophylaxis: Code(s): Z29.9 - Encounter for prophylactic measures, unspecified Status: Acute Assessment and Plan: SCDs (7) CVA (cerebral vascular accident): Qualifiers: CVA mechanism: unspecified Qualified Code(s): I63.9 - Cerebral infarction, unspecified Code(s): I63.9 - Cerebral infarction, unspecified Status: Acute Assessment and Plan: history of CVA (8) Type 1 diabetes mellitus: Qualifiers: Diabetes mellitus complication status: with hyperglycemia Qualified Code(s): E10.65 - Type 1 diabetes mellitus with hyperglycemia Code(s): E10.9 - Type 1 diabetes mellitus without complications Status: Acute Assessment and Plan: blood sugars within normal limits, continue sliding scale insulin and Accu-Chek Additional Plan discussed with daughter Yee, updated with patient's condition and plan of care. Daughter stated that the patient's quality of life is very poor. Daughter states that she was willing to try temporary dialysis and possible pressor support if needed code status: do not intubate /do not resuscitate critical care time spent: 47 minutes Due to a high probability of clinically significant, life threatening deterioration, the patient required my highest level of preparedness to intervene emergently and I personally spent this critical care time directly and personally managing the patient. This critical care time included obtaining a history; examining the patient; pulse oximetry; ordering and review of studies; arranging urgent treatment with development of a management plan; evaluation of patient's response to treatment; frequent reassessment; and discussions with other providers. It was exclusive of separately billable procedures and treating other patients and teaching time. Please see Assessment and Plan section and the rest of the note for further information on patient assessment and gonzalez
[2020-03-02] MEDS: hetaSTARCH 6%/NACL 500 ML 999 ML (10:12)
[2020-03-02] MEDS: TOLNAFTATE 1% POWDER 45 GM BTL 1 APPLIC TOPICAL ×2 (10:13→20:32)
[2020-03-02 10:23] LABS: Glucose Point of Care 143 (65-105)
[2020-03-02] MEDS: SODIUM BICARBONATE 8.4% 50 MEQ/50 ML VIAL IV PUSH (10:51)
[2020-03-02] MEDS: SODIUM BICARBONATE 8.4% 150 MEQ in WATER, STERILE FOR INJECTION 950 ML 75 MEQ IV CONT (11:16)
[2020-03-02 11:53] LABS: Glucose Point of Care 132 (65-105)
--- NOTE | 2020-03-02 12:01 | PCSTNOTE ---
Attempted to see pt. for ST at 11:00, but pt. was unable to maintain arousal or follow directions.
--- NOTE | 2020-03-02 12:32 | PM.CNNEP ---
Assessment and Plan Assessment and plan (1) Acute kidney injury: Code(s): N17.9 - Acute kidney failure, unspecified Status: Acute (2) Altered mental status: Code(s): R41.82 - Altered mental status, unspecified Status: Acute (3) Transaminitis: Code(s): R74.0 - Nonspecific elevation of levels of transaminase and lactic acid dehydrogenase [LDH] Status: Acute (4) CVA (cerebral vascular accident): Qualifiers: CVA mechanism: unspecified Qualified Code(s): I63.9 - Cerebral infarction, unspecified Code(s): I63.9 - Cerebral infarction, unspecified Status: Acute (5) Essential hypertension: Code(s): I10 - Essential (primary) hypertension Status: Acute (6) Type 1 diabetes mellitus: Qualifiers: Diabetes mellitus complication status: with hyperglycemia Qualified Code(s): E10.65 - Type 1 diabetes mellitus with hyperglycemia Code(s): E10.9 - Type 1 diabetes mellitus without complications Status: Acute Assessment and Plan: . Additional Plan Ubaldo has acute kidney injury/acute renal failure as evidence by his admission labs. Is unclear over what time course this insult occurred but his last labs available are from May of 2019 which showed his kidney function to be within normal limits. The suspicion for the etiology of his acute kidney injury falls on IV vancomycin therapy since this is the newest medication he was started on coupled with the findings concerning for possible red man syndrome. The rash/skin changes that are present could also just be a simple nonspecific drug allergy/reaction to the IV vancomycin until the concern for possible acute or chronic interstitial nephritis exist as well. Of course, his fluctuating hemodynamics her also playing a role with regard to his kidney function as I suspect there may have been some relative hypotension either prior to his admission possibly resulting in renal hypoperfusion and may actually explain the rise in his liver function tests if his blood pressure was low enough to insult his liver as well. His IV antibiotics have been switched switched to IV Zosyn and Infectious Disease has been consulted for better tailoring of his antibiotics in general depending on whether not he needs further broad-spectrum IV antibiotic therapy given the history of possible osteomyelitis. Given his skin findings, he has been. This started on IV Solu-Medrol and if indeed he does have a component of acute interstitial nephritis. Given the drastic change in his kidney function, I will proceed with further serological evaluation to rule out any type of intrinsic, infiltrative, or inflammatory kidney disorders. As his kidney function continues to deteriorate, he has a significant metabolic acidosis, and his urine output has been falling, I will proceed with renal replacement therapy/dialysis. I discussed the case extensively (greater than 20 minutes) with his daughter at bedside and she is agreeable to temporary dialysis at this time. My hope is that the a for mentioned serological evaluation will hopefully give me some idea of what caused the patient's acute kidney injury although as already mentioned, there also is there is multiple possibilities ranging from drug reaction to some type of paraproteinemia that could have caused this issue/problem. Ultimately, we may need a renal biopsy for definitive diagnosis which I did discuss with the daughter who was somewhat leery of proceeding with such an intervention as her father did not want any aggressive measures done in terms of intubation or resuscitation ( he is DNR DNI). I will continue follow patient with you while he remains hospitalized and make further recommendations during his hospital course Thank you for allowing me to participate in the care this patient. History of Present Illness Reason for Consult Consult date: 03/02/20 Reason for consult: acute
--- NOTE | 2020-03-02 12:44 | PC.NURSE ---
WOUND CARE NURSE SAW PT AT 0900 WILL PUT IN RECOMENDATIONS. DR ANTON SAW PT AND SPOKE WITH FAMILY.
--- NOTE | 2020-03-02 12:45 | PC.NURSE ---
This patient, Ubaldo Velasquez, was transferred to ICU [ ] on 03/02/20 at 0910. Personal belongings sent with patient. Belongings list checked and signed with receiving [ICU ]. Report given to [CARLOS ]. Appropriate documentation sent with patient.
--- NOTE | 2020-03-02 13:14 | WPDPROCEDUR ---
Procedures Central Line Placement Left IJ: Central Line Date: 03/02/20 Central Line Time: 15:05 Discussed w/ the patient/family/POA,the placement of a central venous catheter, including its clinical necessity/indication & associated potential risks, benifits and alternatives.: Yes The patient/family/POA understand(s) and acknowledge(s) the need to proceed with central venous catheter insertion as an important element of the patient's clinical management.: Yes Time Out Performed: Yes Patient Position: trendelenburg Patient placed on monitor/pulse ox: Yes Provider Prep: mask, sterile gown, sterile gloves, Max. sterile barrier precautions and hand hygiene with conventional soap/water or alcohol based hand rub Central line prep: 2% Chlorhexidine scrub and sterile full body sheet applied Local anesthesia used: lidocaine 1% Amount of anesthesia used (ml): 3 Sterile US Technique with sterile gel/sterile probe covers: Yes Central line lumen inserted: triple Post procedure: sutured in place, good blood return, all ports aspirated, flushed, capped, tegaderm, hemostatic disc, antimicrobial disc and aseptic technique maintained throughout procedure Post procedure x-ray: tip of catheter in good position and no pneumothorax seen Patient tolerated procedure: well Complications: none Additional comments: dialysis catheter with a pigtail placed
[2020-03-02] MEDS: methylPREDNISolone SOD SUCC 125 MG VIAL IV PUSH (14:21)
--- NOTE | 2020-03-02 14:24 | PM.IMPN ---
Progress Note: A&P Assessment and Plan (1) Altered mental status: Code(s): R41.82 - Altered mental status, unspecified Status: Acute Assessment and Plan: 03/02/20 14:24 Ubaldo Velasquez is a 60 year old male with history of type 1 diabetes poorly controlled status post CVA with confusion difficulty with the speech patient has been seen by orthopedic surgeon and had a wound debridement was concern for osteomyelitis and patient is treated with vancomycin and presented emergency department with generalized rash and petechiae and emergency physician suspected the patient has red man syndrome from vancomycin, vancomycin is stopped now being treated with a Zosyn for osteomyelitis, is also found to have acute kidney injury with BUN 57 and creatinine of 5 most likely secondary to vancomycin his kidney function was essentially normal in May of 2019, patient is seen by decontaminator further recommendation to follow. patient is also having dysphagia, is NPO, below the modified swallow study tomorrow. patient with significantly elevated liver function etiology uncertain, his INR is slightly elevated and albumin is low, acute hepatitis panel is negative for infection, will monitor liver function, will do liver ultrasound to further evaluate, on 03/02 overnight and this morning patient is quite hypotensive despite receiving 2 L of fluids and urine output is very poor, discussed with the nephrology recommending patient will need emergent dialysis discussed with the executive director sheltered workshop will transfer the patient to ICU for pressor support and emergent dialysis, unfortunately patient still is unable to provide any detailed review of symptoms (2) Acute kidney injury: Code(s): N17.9 - Acute kidney failure, unspecified Status: Acute Assessment and Plan: most likely secondary to injury from vancomycin as well as dehydration get gently hydrating the patient as patient urine output is very poor patient is seen by decontaminator, (3) Red man syndrome: Code(s): L27.0 - Generalized skin eruption due to drugs and medicaments taken internally Status: Acute Assessment and Plan: patient is treated with Benadryl and Pepcid unable to to give steroid concern for vasculitis and osteomyelitis (4) Transaminitis: Code(s): R74.0 - Nonspecific elevation of levels of transaminase and lactic acid dehydrogenase [LDH] Status: Acute Assessment and Plan: patient with significantly elevated liver function etiology uncertain, his INR is slightly elevated and albumin is low, acute hepatitis panel is negative for infection, will monitor liver function, will do liver ultrasound to further evaluate Subjective Date/time seen: 03/02/20 14:24 Ubaldo Velasquez is a 60 year old male with history of type 1 diabetes poorly controlled status post CVA with confusion difficulty with the speech patient has been seen by orthopedic surgeon and had a wound debridement was concern for osteomyelitis and patient is treated with vancomycin and presented emergency department with generalized rash and petechiae and emergency physician suspected the patient has red man syndrome from vancomycin, vancomycin is stopped now being treated with a Zosyn for osteomyelitis, is also found to have acute kidney injury with BUN 57 and creatinine of 5 most likely secondary to vancomycin his kidney function was essentially normal in May of 2019, patient is seen by decontaminator further recommendation to follow. patient is also having dysphagia, is NPO, below the modified swallow study tomorrow. patient with significantly elevated liver function etiology uncertain, his INR is slightly elevated and albumin is low, acute hepatitis panel is negative for infection, will monitor liver function, will do liver ultrasound to further evaluate, on 03/02 overnight and this morning patient is quite hypotensive despite receiving 2 L of fluids and urine output is very poor, discuss
[2020-03-02] MEDS: FAMOTIDINE 20 MG/2 ML VIAL IV PUSH (15:02)
[2020-03-02 15:37] LABS: Lactic Acid Reflex 1.2 mmol/L (0.7-2.1)
[2020-03-02] MEDS: EPOETIN ALFA-EPBX 10,000 UNITS/ML VIAL 10000 UNITS IV PUSH (16:38)
[2020-03-02 16:56] LABS: Glucose Point of Care 130 (65-105)
[2020-03-02] MEDS: HEPARIN SODIUM 1,000 UNITS/ML VIAL 6000 UNITS (17:19)
[2020-03-02] MEDS: methylPREDNISolone SOD SUCC 125 MG VIAL 60 MG IV PUSH (18:20)
[2020-03-03] VITALS (34 sets, daily range): BP systolic 90–157; BP diastolic 38–89; PULSE 83–105; RESP 14–23; TEMP 36–36.6; O2SAT 93–100
--- NOTE | 2020-03-03 | ECHO_ITS ---
Patient Info Name: Ubaldo Velasquez Age: 60 years : 1960 Gender: Male Ht: 70 in Wt: 190 lbs BSA: 2.08 m2 HR: 96 bpm BP: 100 / 49 mmHg Technical Quality: Fair Exam Date: 03/03/2020 9:31 AM Exam Location: [facility] Pulmonary Patient Status: Inpatient Admit Date: 03/01/2020 Staff Ordering Physician: Millie Marshall MD Signaling Project Engineer: Dang Watson RDCS Attending Provider: Maty Valles DO Exam Type: CA echo doppler color flow Study Info Indications - coronary artery disease history Complete two-dimensional, color flow and Doppler transthoracic echocardiogram is performed. Summary 1. Normal LV size, mild LVH, normal overall LV systolic function, ejection fraction 60-65%; apical segment appears hypokinetic. Normal diastolic function. Borderline left atrial enlargement. Normal mitral valve structure, no mitral regurgitation. No aortic stenosis or regurgitation. Trace TR, RVSP 29 mmHg. Normal sinus rhythm. Left Ventricle Left ventricular chamber dimension is normal. Left ventricular systolic function is normal, estimated at 60-65%. There is mildly increased left ventricular wall thickness. Left ventricular septal wall motion is normal. The left ventricular diastolic function is normal. Right Ventricle Right ventricular chamber dimension is normal. Right ventricular systolic function is normal. Left Atria Left atrial chamber dimension is normal. Right Atria Right atrial chamber dimension is normal. Aortic Valve There is no aortic valve sclerosis. There is no aortic valve stenosis. There is no aortic valve regurgitation. Pulmonic Valve The pulmonic valve is normal. There is mild pulmonic regurgitation. Mitral Valve The mitral valve has normal leaflets. There is no mitral valve stenosis. There is no mitral valve regurgitation. Tricuspid Valve The tricuspid valve leaflets are normal. There is trace tricuspid valve regurgitation. No pulmonary hypertension, estimated pulmonary arterial systolic pressure is 29 mmHg. Pericardium/Pleural The pericardium appears normal. There is no pericardial effusion. Inferior Vena Cava Normal inferior vena cava with >50% collapse upon inspiration consistent with normal right atrial pressure, 10 mmHg. Aorta The aortic root size at the sinus of Valsalva is normal. The prox ascending aorta size is normal. Left Ventricular Outflow Tract Name Value Normal LVOT 2D LVOT Diameter 2.0 cm LVOT Doppler LVOT Peak Gradient 5 mmHg LVOT Mean Gradient 3 mmHg LVOT VTI 20 cm LVOT VTI/AV VTI Ratio 1.0 LVOT Stroke Volume 66 ml LVOT CO 7.3 l/min LVOT CI 3.5 l/min/m2 Pulmonic Valve Name Value Normal RVOT Doppler
[2020-03-03] MEDS: methylPREDNISolone SOD SUCC 125 MG VIAL 60 MG IV PUSH ×4 (00:08→17:19)
[2020-03-03] MEDS: SODIUM BICARBONATE 8.4% 150 MEQ in WATER, STERILE FOR INJECTION 950 ML 75 MEQ IV CONT ×2 (01:37→15:06)
[2020-03-03 06:49] LABS: Hematocrit 29.2 % (42.0-52.0); Mean Corpuscular HGB Conc 30.8 g/dl (32-36); Mean Corpuscular Hemoglobin 26.3 pg (26-34); Mean Corpuscular Volume 85.4 fl (80-100); Mean Platelet Volume 11.6 fl (7.4-10.4); Platelet Count Result 227 k/mm3 (150-375); Red Blood Count 3.42 M/mm3 (4.6-6.20); Red Cell Distribution Width 18.4 % (11.5-14.5); White Blood Count 16.9 K/mm3 (4.5-10.0)
[2020-03-03 07:03] LABS: Alanine Aminotransferase 173 U/L (4-50); Alkaline Phosphatase 540 U/L (38-126); Anion Gap 26 mmol/L (8-16); Aspartate Amino Transferase 59 U/L (17-59); Bilirubin,Total 1.1 mg/dL (0.2-1.3); Blood Urea Nitrogen 63 mg/dL (9-20); Calcium 7.2 mg/dL (8.4-10.2); Carbon Dioxide 7 mmol/L (22-30); Chloride 103 mmol/L (98-107); Estimated CRCL calculation 13 ml/min; Estimated Glomerular Filt Rate 10; Glucose 321 mg/dL (75-110); Magnesium 2.1 mg/dL (1.6-2.3); Phosphorus 7.2 mg/dL (2.5-4.5); Potassium 5.2 mmol/L (3.4-5.0); Sodium 136 mmol/L (137-145)
[2020-03-03 07:04] LABS: Lactic Acid Reflex 2.1 mmol/L (0.7-2.1); Partial Thromboplastin Time 35.1 SECONDS (22.3-36.8)
[2020-03-03 07:24] LABS: INR 1.7; Prothrombin Time 19.7 Seconds (11.1-14.7)
[2020-03-03 07:49] LABS: Glucose Point of Care 331 (65-105)
[2020-03-03] MEDS: FAMOTIDINE 20 MG/2 ML VIAL IV PUSH (08:16)
[2020-03-03] MEDS: INSULIN GLARGINE (*BKC) 100 UNITS/ML 15 UNITS SUB-Q (08:16)
[2020-03-03] MEDS: TOLNAFTATE 1% POWDER 45 GM BTL 1 APPLIC TOPICAL (08:16)
[2020-03-03] MEDS: SODIUM BICARBONATE 8.4% 50 MEQ/50 ML VIAL IV PUSH (08:25)
[2020-03-03] MEDS: INSULIN ASPART (*BKC) 100 UNITS/ML SUB-Q ×2 (08:25→11:55)
[2020-03-03 09:47] LABS: Reflex Lactic Acid Yes or No Add Lactic
--- NOTE | 2020-03-03 09:57 | PM.PNNEP ---
Progress Note: A&P Assessment and Plan (1) Acute kidney injury: Code(s): N17.9 - Acute kidney failure, unspecified Status: Acute Assessment and Plan: etiology not clear... 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 (4) CVA (cerebral vascular accident): Qualifiers: CVA mechanism: unspecified Qualified Code(s): I63.9 - Cerebral infarction, unspecified Code(s): I63.9 - Cerebral infarction, unspecified Status: Chronic Assessment and Plan: chronic issue no intervention needed (5) Essential hypertension: Code(s): I10 - Essential (primary) hypertension Status: Chronic Assessment and Plan: despite history, running on the low side suspect still a component of volume depletion playing a role follow hemodynamics (6) Type 1 diabetes mellitus: Qualifiers: Diabetes mellitus complication status: with hyperglycemia Qualified Code(s): E10.65 - Type 1 diabetes mellitus with hyperglycemia Code(s): E10.9 - Type 1 diabetes mellitus without complications Status: Chronic Assessment and Plan: follow accuchecks on Lantus and SSI Discussed case with Dr. Mejia. Will continue to follow. Subjective Date/time seen: 03/03/20 09:57 Tolerated dialysis treatment yesterday; seems more awake today as well; however, AM labs with mildly elevated K+ and worsening acidosis (despite dialysis yesterday and bicarb gtt); no acute events overnight or earlier this AM. Daughter at bedside and we discussed the situation. Exam Narrative: Exam Narrative: General: WD/WN male in NAD Heart: normal S1 and S2; no rub Lungs: clear to auscultation Abdomen: soft, nontender, nondistended, positive bowel sounds Extremities: no cyanosis or clubbing; no edema Skin: warm and dry Objective Data Vital Signs Vital Signs: Vital Signs Temp Pulse Resp BP Pulse Ox 03/03/20 08:02 99 23 H 100 03/03/20 08:00 36.6 C 98 21 H 94/45 L 100 03/03/20 05:37 96 22 H 100/49 L 98 03/03/20 04:00 36.6 C 96 18 90/44 L 100 03/03/20 01:55 98 16 90/48 L 98 03/03/20 00:00 36.6 C 97 18 99 03/02/20 22:00 99 18 99/40 L 100 03/02/20 20:00 36.6 C 96 22 H 98/62 L 100 03/02/20 18:00 98 22 H 92/52 L 100 03/02/20 17:15 36.4 C L 97 19 104/52 L 100 03/02/20 17:04 98 95/51 L 03/02/20 17:00 99 102/56 L 03/02/20 16:45 100 104/55 L 03/02/20 16:30 98 100/60 03/02/20 16:15 97 106/56 L 03/02/20 16:00 36.4 C 108 H 17 99/53 L 100 03/02/20 15:45 112 H 97/57 L 03/02/20 15:37 107 H 16 100 03/02/20 15:30 101 H 102/58 L 03/02/20 15:15 105 H 91/58 L 03/02/20 15:00 104 H 95/58 L 03/02/20 14:45 105 H 96/54 L 03/02/20 14:30 107 H 95/52 L 03/02/20 14:15 102 H 99/53 L 03/02/20 14:04 101 H 87/51 L 03/02/20 14:00 93 20 86/39 L 100 03/02/20 13:52 94 03/02/20 13:45 36.6 C 100 19 100/50 L 100 03/02/20 12:00 36.6 C 95 20 109/54 L 97 03/02/20 11:09 92 19 97 03/02/20 10:29 92 19 97 03/02/20 10:10 90 03/02/20 10:01 95 25 H 99 03/02/20 10:00 94 24 H 111/70 100 Intake/Output Intake/Output: Intake & Output 02/29/20 03/01/20 03/02/20 03/03/20 23:59 23:59 23:59 23:59 Intake Total 900 1850 1150 Output Total 75 50 0 Balance 825 1800 1150 Meds/Results Medi
--- NOTE | 2020-03-03 10:04 | WPDINFPN2 ---
Progress Note: A&P Assessment and Plan (1) Acute osteomyelitis of right calcaneus: Code(s): M86.171 - Other acute osteomyelitis, right ankle and foot Status: Acute Assessment and Plan: 1. Acute OM of R calcaneus, today is day #43 of planned 6 weeks therapy 2. Erythroderma, Vanc hypersensitivity 3. DM 4. Renal failure REC Stop antibiotics. BCs in process -- ng 2+ days. Outpatient followup with my colleague in [place]. Subjective Date/time seen: 03/03/20 10:04 Objective Data Vital Signs Vital Signs: Vital Signs - 24 hr 03/02/20 10:10 03/02/20 10:29 03/02/20 11:09 Temperature Pulse Rate 90 92 92 Respiratory Rate 19 19 Blood Pressure Pulse Oximetry 97 97 03/02/20 12:00 03/02/20 13:45 03/02/20 13:52 Temperature 36.6 C 36.6 C Pulse Rate 95 100 94 Respiratory Rate 20 19 Blood Pressure 109/54 L 100/50 L Pulse Oximetry 97 100 03/02/20 14:00 03/02/20 14:04 03/02/20 14:15 Temperature Pulse Rate 93 101 H 102 H Respiratory Rate 20 Blood Pressure 86/39 L 87/51 L 99/53 L Pulse Oximetry 100 03/02/20 14:30 03/02/20 14:45 03/02/20 15:00 Temperature Pulse Rate 107 H 105 H 104 H Respiratory Rate Blood Pressure 95/52 L 96/54 L 95/58 L Pulse Oximetry 03/02/20 15:15 03/02/20 15:30 03/02/20 15:37 Temperature Pulse Rate 105 H 101 H 107 H Respiratory Rate 16 Blood Pressure 91/58 L 102/58 L Pulse Oximetry 100 03/02/20 15:45 03/02/20 16:00 03/02/20 16:15 Temperature 36.4 C Pulse Rate 112 H 108 H 97 Respiratory Rate 17 Blood Pressure 97/57 L 99/53 L 106/56 L Pulse Oximetry 100 03/02/20 16:30 03/02/20 16:45 03/02/20 17:00 Temperature Pulse Rate 98 100 99 Respiratory Rate Blood Pressure 100/60 104/55 L 102/56 L Pulse Oximetry 03/02/20 17:04 03/02/20 17:15 03/02/20 18:00 Temperature 36.4 C L Pulse Rate 98 97 98 Respiratory Rate 19 22 H Blood Pressure 95/51 L 104/52 L 92/52 L Pulse Oximetry 100 100 03/02/20 20:00 03/02/20 22:00 03/03/20 00:00 Temperature 36.6 C 36.6 C Pulse Rate 96 99 97 Respiratory Rate 22 H 18 18 Blood Pressure 98/62 L 99/40 L Pulse Oximetry 100 100 99 03/03/20 01:55 03/03/20 04:00 03/03/20 05:37 Temperature 36.6 C Pulse Rate 98 96 96 Respiratory Rate 16 18 22 H Blood Pressure 90/48 L 90/44 L 100/49 L Pulse Oximetry 98 100 98 03/03/20 08:00 03/03/20 08:02 03/03/20 10:00 Temperature 36.6 C Pulse Rate 98 99 90 Respiratory Rate 21 H 23 H 21 H Blood Pressure 94/45 L 103/53 L Pulse Oximetry 100 100 100 Intake/Output Intake/Output: Intake & Output 02/29/20 03/01/20 03/02/20 03/03/20 23:59 23:59 23:59 23:59 Intake Total 900 1850 1150 Output Total 75 50 0 Balance 825 1800 1150 Meds/Results Medications: Active Medications Generic Name Dose Route Start Last Admin Trade Name Freq PRN Reason Stop Dose Admin Acetaminophen 650 mg 03/01/20 08:58 Tylenol Tablet PO Q6H PRN Mild Pain (1-3) Or Fever Aspirin 81 mg 03/01/20 09:00 03/03/20 07:15 Aspirin Ec PO 03/31/20 09:01 Not Given DAILY [facility] Cyanocobalamin 1,000 mcg 03/01/20 09:00 Vitamin B-12 Inj IM MONTHLY [facility] Dextrose 12.5 gm 03/03/20 08:02 Dextrose 50% Syringe IV PUSH PRN PRN Hypoglycemia Protocol Diphenhydramine HCl 25 mg 03/01/20 12:53 03/01/20 13:59 Benadryl Inj IV PUSH 25 mg Q8H PRN Administration Allergic Reaction Epoetin Caesar-epbx 10,000 units 03/03/20 20:32 Retacrit IV PUSH 03/03/20 20:33 ONCE ONE Ergocalciferol unit 03/01/20 09:00 Drisdol PO WEEKLY [facility] Escitalopram Oxalate 10 mg 03/01/20 09:00 03/03/20 07:15 Lexapro PO Not Given DAILY [facility] Famotidine 20 mg 03/02/20 12:30 03/03/20 08:16 Pepcid Iv IV PUSH 20 mg DAILY [facility] Administration Glucagon 1 mg 03/03/20 08:02 Glucagon For Inj IM PRN PRN Hypoglycemia Protocol Glucose 15 gm 03/03/20 08:02 Glutose 15
[2020-03-03] MEDS: ALBUMIN HUMAN 25% 12.5 GM/50ML 50 ML IVPB ×2 (10:45→12:35)
[2020-03-03 11:09] LABS: Lactic Acid < 0.5 mmol/L (0.7-2.1)
--- NOTE | 2020-03-03 11:30 | PCDIET ---
ICU Rounding Note: Patient remains NPO with plan for COMMUNITY COORDINATOR evaluation today. If unable to safely advance diet, will need to consider nutrition support. Last recorded weight is 87.2kg which is increased from last review. +I/O. Patient had dialysis 03/02/20 without fluid removal and undergoing dialysis again today. Bowel Motility: BM x 2 on 03/02/20. Labs Reviewed: Hgb (9.0), Hct (29.2), Glu (321), BUN (63), Cr (5.8), K (5.2), Na (136), Alb (2.0), Manjit Ca (8.8), PO4 (7.2) Meds Noted: Albumin, Vitamin B12, Retacrit, Drisdol, Pepcid, Novolog, Lantus, Lactinex, Solu Medrol, Levophed, Zosyn, Water/150mEq Sodium Bicarbonate at 75mL/hr Additional Notes: LE wounds. No other breakdown reported. Following daily in ICU rounds. Assessing/reassessing every 3 days.
[2020-03-03] MEDS: SODIUM CHLORIDE 0.9% IV 1,000 ML 100 ML IV CONT (11:36)
[2020-03-03] MEDS: HEPARIN SODIUM 1,000 UNITS/ML VIAL 5000 UNITS (11:37)
[2020-03-03 11:57] LABS: Glucose Point of Care 278 (65-105)
[2020-03-03] MEDS: EPOETIN ALFA-EPBX 10,000 UNITS/ML VIAL 10000 UNITS IV PUSH (12:03)
--- NOTE | 2020-03-03 12:03 | WPDINTPN ---
Progress Note: A&P Assessment and Plan (1) Sepsis: Code(s): A41.9 - Sepsis, unspecified organism Status: Acute Assessment and Plan: patient presented with altered mental status, acute kidney injury, leukocytosis, hypotension, osteomyelitis - normal lactic acid level - adequate IV fluids were given to the patient in the ICU with improvement in blood pressures - Off all antibiotics per infectious disease, appreciate their evaluation and recommendation (2) Acute kidney injury: Code(s): N17.9 - Acute kidney failure, unspecified Status: Acute Assessment and Plan: patient with acute kidney injury could be related to vancomycin, hypotension - after discussing with daughter and Nephrology, dialysis catheter was inserted on 03/02/2020 and dialysis was started the same day - patient receive adequate IV fluids - will continue to monitor renal function, electrolytes and urine output (3) Rash: Code(s): R21 - Rash and other nonspecific skin eruption Status: Acute Assessment and Plan: rash after so starting vancomycin, likely red man syndrome or allergic reaction to vancomycin - will place patient on Solu-Medrol and Pepcid. Will avoid Benadryl IV due to his mental status - patient not able to take any p.o. at this time is to cannot give him loratadine or cetirizine (4) Transaminitis: Code(s): R74.0 - Nonspecific elevation of levels of transaminase and lactic acid dehydrogenase [LDH] Status: Acute Assessment and Plan: elevated liver enzymes likely related to hypotension - liver enzymes improving (5) Bladder wall thickening: Code(s): N32.89 - Other specified disorders of bladder Status: Acute Assessment and Plan: CT scan of the abdomen and pelvis showed bladder wall thickening, appreciate urology evaluation - this could be related to chronic BPH, neurogenic secondary to his history of CVA (6) DVT prophylaxis: Code(s): Z29.9 - Encounter for prophylactic measures, unspecified Status: Acute Assessment and Plan: SCDs (7) CVA (cerebral vascular accident): Qualifiers: CVA mechanism: unspecified Qualified Code(s): I63.9 - Cerebral infarction, unspecified Code(s): I63.9 - Cerebral infarction, unspecified Status: Chronic Assessment and Plan: history of CVA (8) Type 1 diabetes mellitus: Qualifiers: Diabetes mellitus complication status: with hyperglycemia Qualified Code(s): E10.65 - Type 1 diabetes mellitus with hyperglycemia Code(s): E10.9 - Type 1 diabetes mellitus without complications Status: Chronic Assessment and Plan: hyperglycemia, will start Lantus, - continue sliding scale insulin and Accu-Cheks Additional Plan discussed with daughter Yee, updated with patient's condition and plan of care. daughter states that patient can carry out a conversation and talks in full sentences. He eats regular diet. I answered all questions code status: do not intubate /do not resuscitate critical care time spent: 37 minutes Due to a high probability of clinically significant, life threatening deterioration, the patient required my highest level of preparedness to intervene emergently and I personally spent this critical care time directly and personally managing the patient. This critical care time included obtaining a history; examining the patient; pulse oximetry; ordering and review of studies; arranging urgent treatment with development of a management plan; evaluation of patient's response to treatment; frequent reassessment; and discussions with other providers. It was exclusive of separately billable procedures and treating other patients and teaching time. Please see Assessment and Plan section and the rest of the note for further information on patient assessment and treatment Subjective Date/time seen: 03/03/20 12:03 Interval history: Reason for c
[2020-03-03 15:19] LABS: Anion Gap 15 mmol/L (8-16); Blood Urea Nitrogen 30 mg/dL (9-20); Calcium 7.8 mg/dL (8.4-10.2); Carbon Dioxide 24 mmol/L (22-30); Chloride 99 mmol/L (98-107); Estimated CRCL calculation 29 ml/min; Estimated Glomerular Filt Rate 26; Glucose 176 mg/dL (75-110); Potassium 3.6 mmol/L (3.4-5.0); Sodium 138 mmol/L (137-145)
--- NOTE | 2020-03-03 15:26 | PM.IMPN ---
Progress Note: A&P Assessment and Plan (1) Altered mental status: Code(s): R41.82 - Altered mental status, unspecified Status: Acute Assessment and Plan: 60 year old male with history of type 1 diabetes poorly controlled status post CVA with confusion difficulty with the speech patient has been seen by orthopedic surgeon and had a wound debridement was concern for osteomyelitis and patient is treated with vancomycin and presented emergency department with generalized rash and petechiae and emergency physician suspected the patient has red man syndrome from vancomycin, vancomycin is stopped now being treated with a Zosyn for osteomyelitis, is also found to have acute kidney injury with BUN 57 and creatinine of 5 most likely secondary to vancomycin his kidney function was essentially normal in May of 2019, patient is seen by ceramic worker further recommendation to follow. As per previous note, complicated case. ID, icu and nephrology rounding. Pt receiving dialysis to clear. Pt is a DNR. Pt is on vasopressors and IV steroids. and IV zosyn for sepsis (2) Acute kidney injury: Code(s): N17.9 - Acute kidney failure, unspecified Status: Acute Assessment and Plan: Dialysis to clear (3) Red man syndrome: Code(s): L27.0 - Generalized skin eruption due to drugs and medicaments taken internally Status: Acute Assessment and Plan: patient is treated with Benadryl and Pepcid, ID rounding on patient. (4) Transaminitis: Code(s): R74.0 - Nonspecific elevation of levels of transaminase and lactic acid dehydrogenase [LDH] Status: Acute Assessment and Plan: patient with significantly elevated liver function etiology uncertain Subjective Date/time seen: 03/03/20 15:26 Interval history: 60 year old male with history of type 1 diabetes poorly controlled status post CVA with confusion difficulty with the speech patient has been seen by orthopedic surgeon and had a wound debridement was concern for osteomyelitis and patient is treated with vancomycin and presented emergency department with generalized rash and petechiae and emergency physician suspected the patient has red man syndrome from vancomycin, vancomycin is stopped now being treated with a Zosyn for osteomyelitis, is also found to have acute kidney injury with BUN 57 and creatinine of 5 most likely secondary to vancomycin his kidney function was essentially normal in May of 2019, patient is seen by ceramic worker further recommendation to follow. As per previous note, complicated case. ID, icu and nephrology rounding. Pt receiving dialysis to clear. Pt is a DNR. Review of Systems Review of Systems: ROS unobtainable: Yes unobtainable due to medical condition Exam Const: General: uncomfortable Resp: Auscultation: clear to auscultation bilaterally Cardio: Rate: regular rate Rhythm: regular rhythm GI: Auscultation: normal bowel sounds Skin: Other: upper lower extremity chest, patient has erythematosus macules and on upper extremities it appears to lie petechia, Neuro: Other: patient is a phasic and confused Extrem: General: normal to inspection Psych: Other: patient is confused Objective Data Vital Signs Vital Signs: Vital Signs - 24 hr 03/02/20 15:30 03/02/20 15:37 03/02/20 15:45 Temperature Pulse Rate 101 H 107 H 112 H Respiratory Rate 16 Blood Pressure 102/58 L 97/57 L Pulse Oximetry 100 03/02/20 16:00 03/02/20 16:15 03/02/20 16:30 Temperature 36.4 C Pulse Rate 108 H 97 98 Respiratory Rate 17 Blood Pressure 99/53 L 106/56 L 100/60 Pulse Oximetry 100 03/02/20 16:45 03/02/20 17:00 03/02/20 17:04 Temperature Pulse Rate 100 99 98 Respiratory Rate Blood Pressure 104/55 L 102/56 L 95/51 L Pulse Oximetry 03/02/20 17:15 03/02/20 18:00 03/02/20 20:00 Temperature 36.4 C L 36.6 C Pulse Rate 97 98 96 Respiratory Rate 19 22 H 22 H Blood Pressure 104
[2020-03-03 17:06] LABS: Glucose Point of Care 186 (65-105)
--- NOTE | 2020-03-03 17:38 | PCSTNOTE ---
Attempted ST treatment with pt. He was awake but unable to follow directions to participate. Provided family education to pt.'s daughter regarding NPO recommendation and swallow rehabilitation efforts.
[2020-03-04] VITALS (27 sets, daily range): BP systolic 108–153; BP diastolic 46–91; PULSE 79–102; RESP 14–23; TEMP 36–37.3; O2SAT 94–100
[2020-03-04 00:12] LABS: Glucose Point of Care 247 (65-105)
[2020-03-04] MEDS: methylPREDNISolone SOD SUCC 125 MG VIAL 60 MG IV PUSH ×4 (00:13→18:19)
[2020-03-04] MEDS: INSULIN ASPART (*BKC) 100 UNITS/ML SUB-Q ×3 (00:16→13:03)
[2020-03-04] MEDS: TOLNAFTATE 1% POWDER 45 GM BTL 1 APPLIC TOPICAL ×2 (00:17→08:15)
[2020-03-04 04:38] LABS: Hematocrit 26.3 % (42.0-52.0); Hemoglobin 8.6 g/dL (14.0-18.0); Mean Corpuscular HGB Conc 32.7 g/dl (32-36); Mean Corpuscular Hemoglobin 26.5 pg (26-34); Mean Corpuscular Volume 81.2 fl (80-100); Mean Platelet Volume 11.2 fl (7.4-10.4); Platelet Count Result 237 k/mm3 (150-375); Red Blood Count 3.24 M/mm3 (4.6-6.20); White Blood Count 20.3 K/mm3 (4.5-10.0)
[2020-03-04 04:48] LABS: Lactic Acid Reflex 1.4 mmol/L (0.7-2.1)
[2020-03-04 04:49] LABS: Alanine Aminotransferase 150 U/L (4-50); Albumin Level 2.4 g/dL (3.5-5.1); Alkaline Phosphatase 543 U/L (38-126); Anion Gap 19 mmol/L (8-16); Aspartate Amino Transferase 48 U/L (17-59); Bilirubin,Total 0.9 mg/dL (0.2-1.3); Blood Urea Nitrogen 50 mg/dL (9-20); Calcium 7.4 mg/dL (8.4-10.2); Carbon Dioxide 21 mmol/L (22-30); Chloride 96 mmol/L (98-107); Estimated CRCL calculation 21 ml/min; Estimated Glomerular Filt Rate 18; Glucose 245 mg/dL (75-110); Magnesium 2.1 mg/dL (1.6-2.3); Phosphorus 5.1 mg/dL (2.5-4.5); Sodium 136 mmol/L (137-145)
[2020-03-04] MEDS: SODIUM BICARBONATE 8.4% 150 MEQ in WATER, STERILE FOR INJECTION 950 ML 75 MEQ IV CONT (06:07)
--- NOTE | 2020-03-04 06:10 | CONS_ITS ---
DATE OF CONSULTATION: 03/03/2020 REASON FOR CONSULTATION: Osteomyelitis, right calcaneus. HISTORY OF PRESENT ILLNESS: The patient is a 60-year-old male who cannot provide any history due to aphasia from previous stroke. I did speak with his daughter and TOMASZ on the phone. He developed an open wound over his right heel and saw one of my colleagues in [place] earlier this summer. On January 19, he was started on cefepime, doxycycline, and vancomycin for acute osteomyelitis. Approximately 2 weeks before the present admission, he also had some type of wound debridement by his surgeon. The daughter saw him about 4 days prior to admission and he has no rash. Unfortunately, he was sent from his assisted to this hospital on 03/01 with erythroderma, acute renal insufficiency was also found. After admission, he also had some mild hypotension, normal lactate and a right IJ triple-lumen catheter was placed. He has received IV fluid boluses and is not on pressors. No other events here in the hospital. ALLERGIES: VANCOMYCIN ABOVE. NO PREVIOUS REACTIONS. MEDICATIONS: Present medications, piperacillin-tazobactam was started apparently due to a concern over ongoing heel infection. HABITS: No tobacco. No alcohol. PAST MEDICAL HISTORY: In addition to the above type 1 diabetes mellitus, A1c 9%, CABG in the past, nephrolithiasis, hyperlipidemia, GERD, hypertension, ED, peripheral neuropathy, systolic and diastolic dysfunction, anemia, chronic inflammation. FAMILY HISTORY: Heart disease, hypertension, diabetes. SOCIAL HISTORY: Disabled oncologists, assisted resident. REVIEW OF SYSTEMS: 14-point review otherwise per record, not obtainable from the patient due to aphasia. PHYSICAL EXAMINATION: GENERAL: Middle-age male appears, older than his actual age. No respiratory distress. VITAL SIGNS: His temperature on evening admission up to 37.8, otherwise afebrile, 103/53, 21, 90, 100% on 2 L. SKIN: Erythroderma with some superimposed petechiae as well. Warm and dry. EENT: The conjunctivae are suffused. No icterus. Pupils equal, round. He will not cooperate for full exam of the mouth, but inspection indicates dry mucous membranes and crusting of the hard and soft palate as well as the tongue. No thrush. NECK: There is no meningismus. LUNGS: Diminished breath sounds, otherwise clear to auscultation and percussion. CHEST: Equal expansion. Normal AP diameter. Triple-lumen catheter in place. CARDIAC: Regular rate and rhythm with a soft S1, S2. No murmurs, gallops, rubs. Unable to palpate dorsalis pedis pulses. Popliteal pulses are 1+. Radial pulses 1+. ABDOMEN: No tenderness is apparent. No organomegaly. No masses. Contour is normal. EXTREMITIES: He has 2+ nonpitting edema in both feet with loss of hair over the posterior aspect of the right heel. He has a 6 or 7 cm surgical incision with sutures. No purulence, fluctuance, odor. No areas of necrosis. He does have erythema surrounding the wound further extent into the anterior distal leg and the dorsal foot posteriorly. LABORATORY DATA: Four sets of blood cultures on admission shortly thereafter, all no growth so far. Urine culture from later that day. No growth final. His white count on admission was 9.2, 14.6 yesterday, 16.9 today, hemoglobin 9.0, platelets are 227. Earlier differential showed no eosinophilia, no left shift. Prothrombin time prolonged. Blood gases 7.32, 27, 90, 14, 96% on 1.5 L. Sodium is mildly low, potassium 5.2, BUN 63 up from 57, creatinine is 5.8 up from 5.0, glucose 321, initially was 76, phosphorus high, calcium low, but his albumin is only 2.0. BNP 3510. Urinalysis, multiple abnormalities that do not suggest infection. Hepatitis panel done for unknown reasons was nonreactive.
[2020-03-04 06:14] LABS: Glucose Point of Care 250 (65-105)
[2020-03-04] MEDS: FAMOTIDINE 20 MG/2 ML VIAL IV PUSH (08:15)
[2020-03-04 08:19] LABS: Glucose Point of Care 274 (65-105)
[2020-03-04] MEDS: INSULIN GLARGINE (*BKC) 100 UNITS/ML 15 UNITS SUB-Q (08:22)
--- NOTE | 2020-03-04 10:59 | PCDIET ---
ICU Rounding Note: Patient remains NPO, as was unable to participate in RETAIL MARKETING MANAGER evaluation yesterday. Recommend RETAIL MARKETING MANAGER evaluation once able. Will provide tube feeding recommendations if unable to safely advance diet. Last recorded weight is 89kg which is up from last review. +I/O. s/p dialysis yesterday (03/03/20) Bowel Motility: Last documented BM on 03/02/20 x 2. Labs Reviewed: Hgb (8.6), Hct (26.3), Glu (245), BUN (50), Cr (3.5), Na (136), Alb (2.4), Manjit Ca (8.68) Meds Noted: Albumin, Vitamin B12, Drisdol, Pepcid, Novolog, Lantus, Lactinex, Solu Medrol, Water/150mEq Sodium Bicarbonate at 75mL/hr Additional Notes: LE wounds documented with abrasion to back. Following daily in ICU rounds. Assessing/reassessing every 3 days.
--- NOTE | 2020-03-04 12:44 | WPDINTPN ---
Progress Note: A&P Assessment and Plan (1) Sepsis: Code(s): A41.9 - Sepsis, unspecified organism Status: Acute Assessment and Plan: patient presented with altered mental status, acute kidney injury, leukocytosis, hypotension, osteomyelitis - normal lactic acid level - adequate IV fluids were given to the patient in the ICU with improvement in blood pressures - Off all antibiotics per infectious disease, appreciate their evaluation and recommendation (2) Acute kidney injury: Code(s): N17.9 - Acute kidney failure, unspecified Status: Acute Assessment and Plan: patient with acute kidney injury could be related to vancomycin, hypotension - after discussing with daughter and Nephrology, dialysis catheter was inserted on 03/02/2020 and dialysis was started the same day - patient receive adequate IV fluids - will continue to monitor renal function, electrolytes and urine output - dialysis per Nephrology (3) Rash: Code(s): R21 - Rash and other nonspecific skin eruption Status: Acute Assessment and Plan: rash after so starting vancomycin, likely red man syndrome or allergic reaction to vancomycin - will place patient on Solu-Medrol and Pepcid. - patient not able to take any p.o. at this time is to cannot give him loratadine or cetirizine (4) Transaminitis: Code(s): R74.0 - Nonspecific elevation of levels of transaminase and lactic acid dehydrogenase [LDH] Status: Acute Assessment and Plan: elevated liver enzymes likely related to hypotension - liver enzymes improving (5) Bladder wall thickening: Code(s): N32.89 - Other specified disorders of bladder Status: Acute Assessment and Plan: CT scan of the abdomen and pelvis showed bladder wall thickening, appreciate urology evaluation - this could be related to chronic BPH, neurogenic secondary to his history of CVA (6) DVT prophylaxis: Code(s): Z29.9 - Encounter for prophylactic measures, unspecified Status: Acute Assessment and Plan: SCDs (7) CVA (cerebral vascular accident): Qualifiers: CVA mechanism: unspecified Qualified Code(s): I63.9 - Cerebral infarction, unspecified Code(s): I63.9 - Cerebral infarction, unspecified Status: Chronic Assessment and Plan: history of CVA (8) Type 1 diabetes mellitus: Qualifiers: Diabetes mellitus complication status: with hyperglycemia Qualified Code(s): E10.65 - Type 1 diabetes mellitus with hyperglycemia Code(s): E10.9 - Type 1 diabetes mellitus without complications Status: Chronic Assessment and Plan: hyperglycemia, continue Lantus - continue sliding scale insulin and Accu-Cheks Additional Plan discussed with daughter Yee, updated with patient's condition and plan of care. I answered all questions speech therapy to continue to evaluate the patient for swallow test code status: do not intubate /do not resuscitate critical care time spent: 32 minutes discussed with Nephrology Due to a high probability of clinically significant, life threatening deterioration, the patient required my highest level of preparedness to intervene emergently and I personally spent this critical care time directly and personally managing the patient. This critical care time included obtaining a history; examining the patient; pulse oximetry; ordering and review of studies; arranging urgent treatment with development of a management plan; evaluation of patient's response to treatment; frequent reassessment; and discussions with other providers. It was exclusive of separately billable procedures and treating other patients and teaching time. Please see Assessment and Plan section and the rest of the note for further information on patient assessment and treatment Subjective Date/time seen: 03/04/20 12:44 Interval history: Reason for consult: confusion, rash, acute kid
[2020-03-04 13:15] LABS: Glucose Point of Care 281 (65-105)
[2020-03-04] MEDS: EPOETIN ALFA-EPBX 10,000 UNITS/ML VIAL 10000 UNITS IV PUSH (14:16)
--- NOTE | 2020-03-04 15:19 | PM.PNNEP ---
Progress Note: A&P Assessment and Plan (1) Acute kidney injury: Code(s): N17.9 - Acute kidney failure, unspecified Status: Acute Assessment and Plan: etiology not clear... due to worsening acidosis and possible uremia, intiated on dialysis/CREDIT RISK MANAGER yesterday HD day before yesterday, yesterday, and plan HD today optimize clearance and stablize electrolytes along with some fluid removal with HD today as well reassess status tomorrow (2) Altered mental status: Code(s): R41.82 - Altered mental status, unspecified Status: Acute Assessment and Plan: seems to be a bit better follow mentation (3) Transaminitis: Code(s): R74.0 - Nonspecific elevation of levels of transaminase and lactic acid dehydrogenase [LDH] Status: Acute Assessment and Plan: appear better etiology? (4) CVA (cerebral vascular accident): Qualifiers: CVA mechanism: unspecified Qualified Code(s): I63.9 - Cerebral infarction, unspecified Code(s): I63.9 - Cerebral infarction, unspecified Status: Chronic Assessment and Plan: chronic issue no intervention needed (5) Essential hypertension: Code(s): I10 - Essential (primary) hypertension Status: Chronic Assessment and Plan: despite history, running on the low side suspect still a component of volume depletion playing a role follow hemodynamics (6) Type 1 diabetes mellitus: Qualifiers: Diabetes mellitus complication status: with hyperglycemia Qualified Code(s): E10.65 - Type 1 diabetes mellitus with hyperglycemia Code(s): E10.9 - Type 1 diabetes mellitus without complications Status: Chronic Assessment and Plan: follow accuchecks on Lantus and SSI Will continue to follow. Subjective Date/time seen: 03/04/20 15:19 Tolerating dialysis at the time of my visit (see on HD at ~ 3:10PM); no apparent distress and seems more awake/responsive then on admission; daughter at bedside and we discussed the situation. Exam Narrative: Exam Narrative: General: WD/WN male in NAD Heart: normal S1 and S2; no rub Lungs: decreased at bases Abdomen: soft, nontender, nondistended, positive bowel sounds Extremities: no cyanosis or clubbing; no edema Skin: warm and dry Objective Data Vital Signs Vital Signs: Vital Signs Temp Pulse Resp BP Pulse Ox 03/04/20 15:15 82 122/67 03/04/20 15:00 85 123/66 03/04/20 14:45 86 125/69 03/04/20 14:15 87 138/71 03/04/20 14:10 89 142/67 H 03/04/20 14:00 36.9 C 89 18 142/67 H 98 03/04/20 12:00 36.2 C L 86 17 153/70 H 99 03/04/20 10:00 87 16 132/73 100 03/04/20 08:00 36.1 C L 83 23 H 131/64 94 03/04/20 06:00 83 20 128/73 95 03/04/20 04:00 37.0 C 83 20 133/59 L 97 03/04/20 02:00 87 18 140/51 L 98 03/04/20 00:00 37.3 C 96 16 131/63 95 03/03/20 22:42 95 03/03/20 22:00 89 20 157/89 H 98 03/03/20 20:00 36.6 C 85 18 143/83 H 98 03/03/20 18:00 84 19 123/59 L 94 03/03/20 16:00 36.6 C 86 21 H 124/77 93 Intake/Output Intake/Output: Intake & Output 03/01/20 03/02/20 03/03/20 03/04/20 23:59 23:59 23:59 23:59 Intake Total 900 1850 2300 1100 Output Total 75 50 10 0 Balance 825 1800 2290 1100 Meds/Results Medications: Active Medications Generic Name Dose Route Start Last Admin Trade Name Tanmay PRN Reason Stop Dose Admin Acetaminophen 650 mg 03/01/20 08:58 Tylenol Tablet PO Q6H PRN Mild Pain (1-3) Or Fever Aspirin 81 mg 03/01/20 09:00 03/04/20 08:09 Aspirin Ec PO 03/31/20 09:01 Not Given DAILY [facility] Cyanocobalamin 1,000 mcg 04/01/20 09:00 Vitamin B-12 Inj IM MONTHLY [facility] Dextrose 12.5 gm 03/03/20 08:02 Dextrose 50% Syringe IV PUSH PRN PRN Hypoglycemia Protocol Diphenhydramine HCl 25 mg 03/01/20 12:53 03/01/20 13:59 Benadryl Inj IV PUSH 25 mg
--- NOTE | 2020-03-04 16:39 | WPDINFPN2 ---
Progress Note: A&P Assessment and Plan (1) Acute osteomyelitis of right calcaneus: Code(s): M86.171 - Other acute osteomyelitis, right ankle and foot Status: Acute Assessment and Plan: 1. Acute OM of R calcaneus, 43 days treatment, now off 2. Erythroderma and rash due to vancomycin allergy. not red man syndrome 3. DM 4. Renal failure REC Off antibiotics. BCs in process -- ng 3+ days. Outpatient followup with my colleague in [place]. Discussed with daughter/POA in person Subjective Date/time seen: 03/04/20 16:39 Interval history: non verbal Exam Narrative: Exam Narrative: afebrile Const: General: no acute distress Neck: Neck: supple Resp: Auscultation: clear to auscultation bilaterally and diminished lung sounds Cardio: Rate: regular rate Rhythm: regular rhythm Heart sounds: no murmurs GI: Inspection: distended GI Palp: Yes Soft to palpation and No Tenderness to palpation present (GI) Skin: Other: erythroderma, also maculopapular rash UEs Objective Data Vital Signs Vital Signs: Vital Signs - 24 hr 03/03/20 18:00 03/03/20 20:00 03/03/20 22:00 Temperature 36.6 C Pulse Rate 84 85 89 Respiratory Rate 19 18 20 Blood Pressure 123/59 L 143/83 H 157/89 H Pulse Oximetry 94 98 98 03/03/20 22:42 03/04/20 00:00 03/04/20 02:00 Temperature 37.3 C Pulse Rate 96 87 Respiratory Rate 16 18 Blood Pressure 131/63 140/51 L Pulse Oximetry 95 95 98 03/04/20 04:00 03/04/20 06:00 03/04/20 08:00 Temperature 37.0 C 36.1 C L Pulse Rate 83 83 83 Respiratory Rate 20 20 23 H Blood Pressure 133/59 L 128/73 131/64 Pulse Oximetry 97 95 94 03/04/20 10:00 03/04/20 12:00 03/04/20 14:00 Temperature 36.2 C L 36.9 C Pulse Rate 87 86 89 Respiratory Rate 16 17 18 Blood Pressure 132/73 153/70 H 142/67 H Pulse Oximetry 100 99 98 03/04/20 14:10 03/04/20 14:15 08/26/20 14:45 Temperature Pulse Rate 89 87 86 Respiratory Rate Blood Pressure 142/67 H 138/71 125/69 Pulse Oximetry 03/04/20 15:00 03/04/20 15:15 03/04/20 15:45 Temperature Pulse Rate 85 82 87 Respiratory Rate Blood Pressure 123/66 122/67 129/65 Pulse Oximetry 03/04/20 16:00 03/04/20 16:15 Temperature Pulse Rate 102 H 86 Respiratory Rate Blood Pressure 108/81 114/91 H Pulse Oximetry Intake/Output Intake/Output: Intake & Output 03/01/20 03/02/20 03/03/20 03/04/20 23:59 23:59 23:59 23:59 Intake Total 900 1850 2300 1100 Output Total 75 50 10 0 Balance 825 1800 2290 1100 Meds/Results Medications: Active Medications Generic Name Dose Route Start Last Admin Trade Name Freq PRN Reason Stop Dose Admin Acetaminophen 650 mg 03/01/20 08:58 Tylenol Tablet PO Q6H PRN Mild Pain (1-3) Or Fever Aspirin 81 mg 03/01/20 09:00 03/04/20 08:09 Aspirin Ec PO 03/31/20 09:01 Not Given DAILY [facility] Cyanocobalamin 1,000 mcg 04/01/20 09:00 Vitamin B-12 Inj IM MONTHLY [facility] Dextrose 12.5 gm 03/03/20 08:02 Dextrose 50% Syringe IV PUSH PRN PRN Hypoglycemia Protocol Diphenhydramine HCl 25 mg 03/01/20 12:53 03/01/20 13:59 Benadryl Inj IV PUSH 25 mg Q8H PRN Administration Allergic Reaction Epoetin Caesar-epbx 10,000 units 03/04/20 19:22 03/04/20 14:16 Retacrit IV PUSH 03/04/20 19:23 10,000 units ONCE ONE Administration Ergocalciferol 50,000 unit 03/05/20 09:00 Drisdol PO Th@0900 [facility] Escitalopram Oxalate 10 mg 03/01/20 09:00 03/04/20 08:09 Lexapro PO Not Given DAILY [facility] Famotidine 20 mg 03/02/20 12:30 03/04/20 08:15 Pepcid Iv IV PUSH 20 mg DAILY [facility] Administration Glucagon 1 mg 03/03/20 08:02 Glucagon For Inj IM PRN PRN Hypoglycemia Protocol Glucose 15 gm 03/03/20 08:02 Glutose 15 PO PRN PRN Hypoglycemia Protocol Dextrose 1,000 mls @ 100 mls/hr 03/01/20 09:27 Dextrose 5% 1,000 Ml IVPB PRN PRN Hypoglycemia Protocol
--- NOTE | 2020-03-04 17:34 | PM.IMPN ---
Progress Note: A&P Assessment and Plan (1) Altered mental status: Code(s): R41.82 - Altered mental status, unspecified Status: Acute Assessment and Plan: 60 year old male with history of type 1 diabetes poorly controlled status post CVA with confusion difficulty with the speech patient has been seen by orthopedic surgeon and had a wound debridement was concern for osteomyelitis and patient is treated with vancomycin and presented emergency department with generalized rash and petechiae and emergency physician suspected the patient has red man syndrome from vancomycin, vancomycin is stopped now being treated with a Zosyn for osteomyelitis, is also found to have acute kidney injury with BUN 57 and creatinine of 5 most likely secondary to vancomycin his kidney function was essentially normal in May of 2019, patient is seen by diesel engine ii pipe fitter further recommendation to follow. As per previous note, complicated case. ID, icu and nephrology rounding. Pt receiving dialysis to clear. Pt is a DNR. Pt is off vasopressors, only on iv steroids now, no IV antibitiocs. Pt is down graded to IMU (2) Acute kidney injury: Code(s): N17.9 - Acute kidney failure, unspecified Status: Acute Assessment and Plan: Dialysis to clear, receiving dialysis today (3) Red man syndrome: Code(s): L27.0 - Generalized skin eruption due to drugs and medicaments taken internally Status: Acute Assessment and Plan: Patient is treated with Benadryl and Pepcid, ID rounding on patient. Consulted wound team for rash management. (4) Transaminitis: Code(s): R74.0 - Nonspecific elevation of levels of transaminase and lactic acid dehydrogenase [LDH] Status: Acute Assessment and Plan: Patient with significantly elevated liver function etiology uncertain Subjective Date/time seen: 03/04/20 17:34 Interval history: 60 year old male with history of type 1 diabetes poorly controlled status post CVA with confusion difficulty with the speech patient has been seen by orthopedic surgeon and had a wound debridement was concern for osteomyelitis and patient is treated with vancomycin and presented emergency department with generalized rash and petechiae and emergency physician suspected the patient has red man syndrome from vancomycin, vancomycin is stopped now being treated with a Zosyn for osteomyelitis, is also found to have acute kidney injury with BUN 57 and creatinine of 5 most likely secondary to vancomycin his kidney function was essentially normal in May of 2019, patient is seen by diesel engine ii pipe fitter further recommendation to follow. As per previous note, complicated case. ID, icu and nephrology rounding. Pt receiving dialysis to clear. Pt is a DNR. Review of Systems Review of Systems: ROS unobtainable: Yes unobtainable due to medical condition Exam Const: General: confusion, tired appearing and other (chronically ill appearing ) Skin: Other: upper lower extremity chest, patient has erythematosus macules and on upper extremities it appears to lie petechia, Psych: Other: patient is confused Objective Data Vital Signs Vital Signs: Vital Signs - 24 hr 03/03/20 18:00 03/03/20 20:00 03/03/20 22:00 Temperature 36.6 C Pulse Rate 84 85 89 Respiratory Rate 19 18 20 Blood Pressure 123/59 L 143/83 H 157/89 H Pulse Oximetry 94 98 98 03/03/20 22:42 03/04/20 00:00 03/04/20 02:00 Temperature 37.3 C Pulse Rate 96 87 Respiratory Rate 16 18 Blood Pressure 131/63 140/51 L Pulse Oximetry 95 95 98 03/04/20 04:00 03/04/20 06:00 03/04/20 08:00 Temperature 37.0 C 36.1 C L Pulse Rate 83 83 83 Respiratory Rate 20 20 23 H Blood Pressure 133/59 L 128/73 131/64 Pulse Oximetry 97 95 94 03/04/20 10:00 03/04/20 12:00 03/04/20 14:00 Temperature 36.2 C L 36.9 C Pulse Rate 87 86 89 Respiratory Rate 16 17 18 Blood Pressure 132/73 153/70 H 142/67 H Pulse Oximetry 100 99 98 03/04/20 14:1
[2020-03-04 18:32] LABS: Chloride Rand Ur <20 mmol/L (32-290); Creatinine Random Urine 34 mg/dL (20-320)
[2020-03-04 18:37] LABS: Glucose Point of Care 192 (65-105)
[2020-03-04 23:38] LABS: Albumin 1.7 g/dL (3.8-4.8); Alpha 1 Globulin 0.3 g/dL (0.2-0.3); Alpha 2 Globulin 0.5 g/dL (0.5-0.9); Beta 1 Globulin 0.2 g/dL (0.4-0.6); Gamma Globulin 0.5 g/dL (0.8-1.7); Protein, Total 3.3 g/dL (6.1-8.1)
[2020-03-04 23:54] LABS: Glucose Point of Care 259 (65-105)
[2020-03-05] VITALS (15 sets, daily range): BP systolic 114–146; BP diastolic 53–83; PULSE 83–112; RESP 16–24; TEMP 36.1–36.7; O2SAT 94–100
[2020-03-05] MEDS: methylPREDNISolone SOD SUCC 125 MG VIAL 60 MG IV PUSH ×4 (00:51→19:04)
[2020-03-05] MEDS: TOLNAFTATE 1% POWDER 45 GM BTL 1 APPLIC TOPICAL ×3 (04:37→21:12)
[2020-03-05 05:06] LABS: Hematocrit 27.4 % (42.0-52.0); Hemoglobin 8.7 g/dL (14.0-18.0); Mean Corpuscular HGB Conc 31.8 g/dl (32-36); Mean Corpuscular Hemoglobin 25.7 pg (26-34); Mean Corpuscular Volume 81.1 fl (80-100); Mean Platelet Volume 10.8 fl (7.4-10.4); Platelet Count Result 222 k/mm3 (150-375); Red Blood Count 3.38 M/mm3 (4.6-6.20); Red Cell Distribution Width 18.6 % (11.5-14.5); White Blood Count 18.5 K/mm3 (4.5-10.0)
[2020-03-05 05:27] LABS: Alanine Aminotransferase 141 U/L (4-50); Albumin Level 2.5 g/dL (3.5-5.1); Alkaline Phosphatase 570 U/L (38-126); Anion Gap 21 mmol/L (8-16); Aspartate Amino Transferase 41 U/L (17-59); Bilirubin,Total 0.8 mg/dL (0.2-1.3); Blood Urea Nitrogen 45 mg/dL (9-20); Calcium 7.1 mg/dL (8.4-10.2); Carbon Dioxide 18 mmol/L (22-30); Chloride 96 mmol/L (98-107); Estimated CRCL calculation 23 ml/min; Estimated Glomerular Filt Rate 20; Glucose 337 mg/dL (75-110); Magnesium 2.2 mg/dL (1.6-2.3); Phosphorus 5.7 mg/dL (2.5-4.5); Potassium 4.4 mmol/L (3.4-5.0); Sodium 135 mmol/L (137-145)
[2020-03-05] MEDS: INSULIN ASPART (*BKC) 100 UNITS/ML SUB-Q ×2 (06:05→13:07)
[2020-03-05 08:48] LABS: Anti Glomerular Basement Memb <1.0 AI (<1.0)
[2020-03-05] MEDS: FAMOTIDINE 20 MG/2 ML VIAL IV PUSH (09:15)
[2020-03-05] MEDS: INSULIN GLARGINE (*BKC) 100 UNITS/ML 19 UNITS SUB-Q (09:15)
[2020-03-05] MEDS: MORPHINE SULFATE 4 MG/ML INJ IV PUSH (09:29)
[2020-03-05 12:15] LABS: Glucose Point of Care 374 (65-105)
--- NOTE | 2020-03-05 14:25 | PCDIET ---
Nutrition Follow-Up Complete: Nutrition Diagnosis: Inadequate oral intake related to dysphagia/multiple medical issues as evidenced by NPO status. Nutrition Goal: Patient to meet estimated nutritional needs. Goal not met. RN to discuss plan for nutrition with DIRECTOR OF SLEEP/MD. If unable to safely advance diet, recommend enteral feedings: Nepro at goal of 50mL/hr x 22 hours/day will provide 1980kcal (22kcal/kg, 26kcal/kg ideal bw), 89g protein (1g/kg, 1.2g/kg ideal bw), and 799mL free water. Suggest 30mL water flush every 4 hours. Last recorded weight is 89.4 kg which is stable. Bowel Motility: +BM today. Labs Reviewed: Hgb (8.7), Hct (27.4), Glu (337), BUN (45), Cr (3.2), Na (135), Alb (2.5), Manjit Ca (8.3), PO4 (5.7) Meds Noted: Albumin, Vitamin B12, Novolog, Lantus, Solu Medrol, Drisdol, Pepcid, Lactinex Additional Notes: Back abrasion; bilateral foot wounds. Will continue to monitor with same goal. Nutrition Monitoring and Evaluation: Follow up every 3 days.
--- NOTE | 2020-03-05 15:19 | PM.IMPN ---
Progress Note: A&P Assessment and Plan (1) Altered mental status: Code(s): R41.82 - Altered mental status, unspecified Status: Acute Assessment and Plan: 60 year old male with history of type 1 diabetes poorly controlled status post CVA with confusion difficulty with the speech, CABG patient has been seen by orthopedic surgeon and had a wound debridement was concern for osteomyelitis and patient is treated with vancomycin and presented emergency department with generalized rash and petechiae and emergency physician suspected the patient has red man syndrome from vancomycin, vancomycin is stopped now being treated with a Zosyn for osteomyelitis, is also found to have acute kidney injury with BUN 57 and creatinine of 5 most likely secondary to vancomycin his kidney function was essentially normal in May of 2019, patient is seen by hosted services analyst further recommendation to follow. As per previous note, complicated case. ID, icu and nephrology rounding. Pt receiving dialysis to clear. Pt is a DNR. Pt is on iv steroids only (2) Acute kidney injury: Code(s): N17.9 - Acute kidney failure, unspecified Status: Acute Assessment and Plan: Dialysis to clear, receiving dialysis yesteday , creat down from 5 to 3 (3) Red man syndrome: Code(s): L27.0 - Generalized skin eruption due to drugs and medicaments taken internally Status: Acute Assessment and Plan: Red man not likely more a reaction to vancomycin Patient is treated with Benadryl and Pepcid, ID rounding on patient. (4) Transaminitis: Code(s): R74.0 - Nonspecific elevation of levels of transaminase and lactic acid dehydrogenase [LDH] Status: Acute Assessment and Plan: Patient with significantly elevated liver function etiology uncertain (5) CVA (cerebral vascular accident): Qualifiers: CVA mechanism: unspecified Qualified Code(s): I63.9 - Cerebral infarction, unspecified Code(s): I63.9 - Cerebral infarction, unspecified Status: Chronic Assessment and Plan: CVA x2 pt is ahasic history from daughter pt has many medical problems cva, cabg, ESRD, dm recently treated for OM on vancomycin when rash flared up. (6) Type 1 diabetes mellitus: Qualifiers: Diabetes mellitus complication status: with hyperglycemia Qualified Code(s): E10.65 - Type 1 diabetes mellitus with hyperglycemia Code(s): E10.9 - Type 1 diabetes mellitus without complications Status: Chronic Assessment and Plan: SSI, accuchecks, caution pt is on iv steroids Subjective Date/time seen: 03/05/20 15:19 Interval history: 60 year old male with history of type 1 diabetes poorly controlled status post CVA with confusion difficulty with the speech patient has been seen by orthopedic surgeon and had a wound debridement was concern for osteomyelitis and patient is treated with vancomycin and presented emergency department with generalized rash and petechiae and emergency physician suspected the patient has red man syndrome from vancomycin, vancomycin is stopped now being treated with a Zosyn for osteomyelitis, is also found to have acute kidney injury with BUN 57 and creatinine of 5 most likely secondary to vancomycin his kidney function was essentially normal in May of 2019, patient is seen by hosted services analyst further recommendation to follow. As per previous note, complicated case. ID and nephrology rounding. Pt receiving dialysis to clear. Pt is a DNR. Pts rash appears to be worse, not likely to be red man syndrome more a reaction to vancomycin Review of Systems Review of Systems: ROS unobtainable: Yes unobtainable due to medical condition Exam Const: General: confusion, tired appearing, uncomfortable and other (chronically ill appearing ) Orientation/consciousness: confusion HENMT: General nose exam: Normal nares present Mouth: Yes moist mucous membranes Eyes: General: appearance
--- NOTE | 2020-03-05 16:01 | PCSTNOTE ---
Speech Therapist spoke at length with the daughter concerning the plan to continue direct Skilled Speech Therapy to address voluntary oral motor movements and initiation of the swallow reflex. This therapist will instruct the covering Speech Language Pathologists concerning exercises and triggers for the swallow. Additionally, daughter and this therapist spoke about options for nutrition and hydration including NG tube and stomach tube. Daughter voiced understanding and knows this decision will have to be made quickly. This therapist will return on Monday to continue the plan of treatment in order to increase the possibility of return to oral feedings. No charge visit this date.
--- NOTE | 2020-03-05 16:04 | PM.PNNEP ---
Progress Note: A&P Assessment and Plan (1) Acute kidney injury: Code(s): N17.9 - Acute kidney failure, unspecified Status: Acute Assessment and Plan: etiology not clear... multiple serologies/tests still pending due to worsening acidosis and possible uremia, intiated on dialysis/CLINICAL PHARMACY MANAGER yesterday suspect possible acute interstitial nephritis - drug rash on admission thought to be secondary vancomycin reaction - no peripheral eosinophilia on differential of CBC - urine eosinophils negative - however, if this is the case, she is getting IV steroids in any case for potential treatment hold HD today (2) Altered mental status: Code(s): R41.82 - Altered mental status, unspecified Status: Acute Assessment and Plan: seems to be a bit better follow mentation (3) Transaminitis: Code(s): R74.0 - Nonspecific elevation of levels of transaminase and lactic acid dehydrogenase [LDH] Status: Acute Assessment and Plan: appear better etiology? (4) CVA (cerebral vascular accident): Qualifiers: CVA mechanism: unspecified Qualified Code(s): I63.9 - Cerebral infarction, unspecified Code(s): I63.9 - Cerebral infarction, unspecified Status: Chronic Assessment and Plan: chronic issue no intervention needed (5) Essential hypertension: Code(s): I10 - Essential (primary) hypertension Status: Chronic Assessment and Plan: despite history, running on the low side suspect still a component of volume depletion playing a role follow hemodynamics (6) Type 1 diabetes mellitus: Qualifiers: Diabetes mellitus complication status: with hyperglycemia Qualified Code(s): E10.65 - Type 1 diabetes mellitus with hyperglycemia Code(s): E10.9 - Type 1 diabetes mellitus without complications Status: Chronic Assessment and Plan: follow accuchecks on Lantus and SSI Will continue to follow. Subjective Date/time seen: 03/05/20 16:04 Transferred out of ICU; tolerated dialysis yesteday; still not making much urine; no apparent distress at the time of my visit. Exam Narrative: Exam Narrative: General: WD/WN male in NAD Heart: normal S1 and S2; no rub Lungs: decreased at bases Abdomen: soft, nontender, nondistended, positive bowel sounds Extremities: no cyanosis or clubbing; no edema Skin: warm and dry Objective Data Vital Signs Vital Signs: Vital Signs Temp Pulse Resp BP Pulse Ox 03/05/20 14:00 89 03/05/20 12:00 90 03/05/20 11:50 36.3 C L 91 16 130/61 97 03/05/20 10:00 101 H 03/05/20 08:00 36.3 C L 94 16 129/62 03/05/20 05:59 92 03/05/20 04:00 36.7 C 94 22 H 114/53 L 94 03/05/20 02:00 102 H 03/05/20 00:00 98 20 97 03/04/20 23:56 36.6 C 87 20 129/71 97 03/04/20 22:00 86 03/04/20 20:00 85 20 99 03/04/20 19:55 36.2 C L 96 20 115/71 99 03/04/20 19:30 37.1 C 92 14 150/75 H 98 03/04/20 19:00 83 143/85 H 03/04/20 18:45 97 118/77 03/04/20 18:30 97 118/72 03/04/20 18:15 86 115/75 03/04/20 18:00 79 123/46 L 03/04/20 16:15 86 114/91 H Intake/Output Intake/Output: Intake & Output 03/02/20 03/03/20 03/04/20 03/05/20 23:59 23:59 23:59 23:59 Intake Total 1850 2300 1500 Output Total 50 10 2654 50 Balance 1800 2290 -1154 -50 Meds/Results Medications: Active Medications Generic Name Dose Route Start Last Admin Trade Name Freq PRN Reason Stop Dose Admin Acetaminophen 650 mg 03/01/20 08:58 Tylenol Tablet PO Q6H PRN Mild Pain (1-3) Or Fever Aspirin 81 mg 03/01/20 09:00 03/05/20 09:02 Aspirin Ec PO 03/31/20 09:01 Not Given DAILY [facility] Cyanocobalamin 1,000 mcg 04/01/20 09:00 Vitamin B-12 Inj IM MONTHLY [facility] Dextrose 12.5 gm 03/03/20 08:02 Dextrose 50% Syringe IV PUSH PRN PRN Hypoglycemi
[2020-03-05 18:03] LABS: Glucose Point of Care 378 (65-105)
[2020-03-05] MEDS: INSULIN ASPART (*BKC) 100 UNITS/ML 10 UNITS SUB-Q (19:04)
[2020-03-05] MEDS: BETAMETHASONE/CLOTRIMAZOLE CR 15 GM TUBE 1 APPLIC TOPICAL (21:13)
[2020-03-06] VITALS (25 sets, daily range): BP systolic 123–190; BP diastolic 63–101; PULSE 91–128; RESP 16–22; TEMP 36–37.2; O2SAT 95–99
[2020-03-06] LABS: Glucose Point of Care 387 (65-105)
[2020-03-06] MEDS: INSULIN ASPART (*BKC) 100 UNITS/ML SUB-Q ×3 (00:03→23:22)
[2020-03-06 05:16] LABS: Hematocrit 27.2 % (42.0-52.0); Hemoglobin 8.9 g/dL (14.0-18.0); Mean Corpuscular HGB Conc 32.7 g/dl (32-36); Mean Corpuscular Hemoglobin 26.1 pg (26-34); Mean Corpuscular Volume 79.8 fl (80-100); Mean Platelet Volume 10.5 fl (7.4-10.4); Platelet Count Result 227 k/mm3 (150-375); Red Blood Count 3.41 M/mm3 (4.6-6.20); Red Cell Distribution Width 18.6 % (11.5-14.5); White Blood Count 16.7 K/mm3 (4.5-10.0)
[2020-03-06 05:27] LABS: Alanine Aminotransferase 131 U/L (4-50); Albumin Level 2.5 g/dL (3.5-5.1); Alkaline Phosphatase 490 U/L (38-126); Anion Gap 15 mmol/L (8-16); Aspartate Amino Transferase 36 U/L (17-59); Bilirubin,Total 0.7 mg/dL (0.2-1.3); Blood Urea Nitrogen 81 mg/dL (9-20); Calcium 6.7 mg/dL (8.4-10.2); Carbon Dioxide 24 mmol/L (22-30); Chloride 98 mmol/L (98-107); Estimated CRCL calculation 16 ml/min; Estimated Glomerular Filt Rate 13; Glucose 392 mg/dL (75-110); Magnesium 2.6 mg/dL (1.6-2.3); Phosphorus 6.5 mg/dL (2.5-4.5); Potassium 4.8 mmol/L (3.4-5.0); Sodium 137 mmol/L (137-145)
[2020-03-06 05:53] LABS: Glucose Point of Care 410 (65-105)
[2020-03-06] MEDS: methylPREDNISolone SOD SUCC 125 MG VIAL 60 MG IV PUSH ×3 (06:23→12:35)
[2020-03-06] MEDS: INSULIN ASPART (*BKC) 100 UNITS/ML 10 UNITS SUB-Q ×2 (06:29→12:35)
[2020-03-06 07:31] LABS: Creatinine, Random Urine 182 mg/dL (20-320); Total Protein/Creatinine Ratio 1747 mg/g creat (22-128)
[2020-03-06] MEDS: BETAMETHASONE/CLOTRIMAZOLE CR 15 GM TUBE 1 APPLIC TOPICAL ×2 (08:35→20:51)
[2020-03-06] MEDS: FAMOTIDINE 20 MG/2 ML VIAL IV PUSH (08:35)
[2020-03-06] MEDS: TOLNAFTATE 1% POWDER 45 GM BTL 1 APPLIC TOPICAL ×2 (08:35→20:40)
[2020-03-06 08:46] LABS: Glucose Point of Care 443 (65-105)
[2020-03-06] MEDS: INSULIN GLARGINE (*BKC) 100 UNITS/ML 19 UNITS SUB-Q (08:47)
[2020-03-06 11:53] LABS: Glucose Point of Care 403 (65-105)
--- NOTE | 2020-03-06 14:44 | PCDIET ---
Nutrition Follow-Up Complete: Nutrition Diagnosis: Inadequate oral intake related to dysphagia/multiple medical issues as evidenced by NPO status. Nutrition Goal: Patient to meet estimated nutritional needs. Goal not met. If aggressive nutritional therapy is desired, continue to recommend Nepro at goal of 50mL/hr with 30mL water flush every 4 hours. Last recorded weight is 89.4 kg which is stable. Bowel Motility: Small BM documented on 03/05/20. Labs Reviewed: Hgb (8.9), Hct (27.2), Glu (392), BUN (81), Cr (4.7), Alb (2.5), PO4 (6.5) Meds Noted: Albumin, Pepcid, Solu Medrol, Vitamin B12, Drisdol, Lactinex, Retacrit, Novolog, Lantus Additional Notes: No significant skin changes documented. Will continue to monitor with same goal. Nutrition Monitoring and Evaluation: Follow up every 3 days.
--- NOTE | 2020-03-06 15:08 | PC.NURSE ---
Order to insert NG. Pt unable to swallow. Multiple attempts to insert NG all failed with NG coming out of mouth. MD aware of unsuccessful insertion. No other orders at this time.
--- NOTE | 2020-03-06 15:26 | PM.IMPN ---
Progress Note: A&P Assessment and Plan (1) Altered mental status: Code(s): R41.82 - Altered mental status, unspecified Status: Acute Assessment and Plan: 60 year old male with history of type 1 diabetes poorly controlled status post CVA with confusion difficulty with the speech patient has been seen by orthopedic surgeon and had a wound debridement was concern for osteomyelitis and patient is treated with vancomycin and presented emergency department with generalized rash and petechiae and emergency physician suspected the patient has red man syndrome from vancomycin, vancomycin is stopped now being treated with a Zosyn for osteomyelitis, is also found to have acute kidney injury complicated case. ID, and nephrology rounding. Pt receiving dialysis to clear. Pt is a DNR. Pt is off vasopressors, only on iv steroids now, no IV antibiotics. Nurse attempted to place NG tube and start tube feeds unfortunately NG coiled up. Radiological guided NG tube placement was ordered, but pt developed neurological changes upward gaze so stat CT head was ordered ? CVA Please note pts Bp and sugars has been running up and we need to control this better. (2) Acute kidney injury: Code(s): N17.9 - Acute kidney failure, unspecified Status: Acute Assessment and Plan: Dialysis to clear, receiving dialysis past 2-3 days (3) Red man syndrome: Code(s): L27.0 - Generalized skin eruption due to drugs and medicaments taken internally Status: Acute Assessment and Plan: Patient is treated with Benadryl and Pepcid, ID rounding on patient. Pt rash appear better today pt being seen by wound team. ? livedo reticularis and contact dermatitis mixed picture (4) Transaminitis: Code(s): R74.0 - Nonspecific elevation of levels of transaminase and lactic acid dehydrogenase [LDH] Status: Acute Assessment and Plan: Patient with significantly elevated liver function etiology uncertain Subjective Date/time seen: 03/06/20 15:26 Interval history: 60 year old male with history of type 1 diabetes poorly controlled status post CVA with confusion difficulty with the speech patient has been seen by orthopedic surgeon and had a wound debridement was concern for osteomyelitis and patient is treated with vancomycin and presented emergency department with generalized rash and petechiae and emergency physician suspected the patient has red man syndrome from vancomycin, vancomycin is stopped now being treated with a Zosyn for osteomyelitis, is also found to have acute kidney injury with BUN 57 and creatinine of 5 most likely secondary to vancomycin his kidney function was essentially normal in May of 2019, patient is seen by sports medicine physician further recommendation to follow. As per previous note, complicated case. ID and nephrology rounding. Pt rash appear better today pt being seen by wound team. ? livedo reticularis and contact dermatitis mix, Nurse attempted to place NG tube and start tube feeds unfortunately NG coiled up. Radiological guided NG tube placement was ordered, but pt developed neurological changes upward gaze so stat CT head was orderd Please note pts Bp and sugars has been running up and we need to control this better. Review of Systems Review of Systems: All systems reviewed & are unremarkable except as noted in HPI and below Exam Const: General: confusion, tired appearing, uncomfortable and other (chronically ill appearing ) Orientation/consciousness: confusion HENMT: General nose exam: Normal nares present Mouth: Yes moist mucous membranes Eyes: General: appearance normal, both eyes and all related structures Sclera: sclerae normal Neck: Neck: supple Resp: Effort & Inspection: normal respiratory effort Auscultation: clear to auscultation bilaterally Cardio: Rate: regular rate Rhythm: regular rhythm GI: Auscultation: normal bowel sounds Skin: Other: upper lower extremity c
[2020-03-06 16:28] LABS: Lambda Light Chain 54.8 mg/L (5.7-26.3)
--- NOTE | 2020-03-06 17:05 | PM.PNNEP ---
Progress Note: A&P Assessment and Plan (1) Acute kidney injury: Code(s): N17.9 - Acute kidney failure, unspecified Status: Acute Assessment and Plan: etiology not clear... multiple serologies/tests still pending due to worsening acidosis and possible uremia, intiated on dialysis/P[employer] suspect possible acute interstitial nephritis - drug rash on admission thought to be secondary vancomycin reaction - no peripheral eosinophilia on differential of CBC - urine eosinophils negative - however, if this is the case, he is getting IV steroids for potential treatment perhaps relative hypotension is more to blame - low BP/perfusion may explain the insult to his kidneys as well as elevated LFTs as well.... HD today (although suspect elevated BUN secondary to steroid use) (2) Altered mental status: Code(s): R41.82 - Altered mental status, unspecified Status: Acute Assessment and Plan: seems to be a bit better follow mentation (3) Transaminitis: Code(s): R74.0 - Nonspecific elevation of levels of transaminase and lactic acid dehydrogenase [LDH] Status: Acute Assessment and Plan: appear better etiology? (4) CVA (cerebral vascular accident): Qualifiers: CVA mechanism: unspecified Qualified Code(s): I63.9 - Cerebral infarction, unspecified Code(s): I63.9 - Cerebral infarction, unspecified Status: Chronic Assessment and Plan: chronic issue no intervention needed (5) Essential hypertension: Code(s): I10 - Essential (primary) hypertension Status: Chronic Assessment and Plan: despite history, running on the low side suspect still a component of volume depletion playing a role follow hemodynamics (6) Type 1 diabetes mellitus: Qualifiers: Diabetes mellitus complication status: with hyperglycemia Qualified Code(s): E10.65 - Type 1 diabetes mellitus with hyperglycemia Code(s): E10.9 - Type 1 diabetes mellitus without complications Status: Chronic Assessment and Plan: follow accuchecks on Lantus and SSI Will continue to follow. Subjective Date/time seen: 03/06/20 17:05 Patient tolerating hemodialysis treatment at the time of my visit (seen on HD at ~ 4:45PM); rash/skin appears significantly better; no apparent distress noted; blood pressure creeeping up; noted acute neurological change earlier today necessitating stat CT scan with results noted. Exam Narrative: Exam Narrative: General: WD/WN male in NAD Heart: normal S1 and S2; no rub Lungs: decreased at bases Abdomen: soft, nontender, nondistended, positive bowel sounds Extremities: no cyanosis or clubbing; no edema Skin: warm and intact; rash better Objective Data Vital Signs Vital Signs: Vital Signs Temp Pulse Resp BP Pulse Ox 03/06/20 16:00 104 H 03/06/20 15:00 103 H 157/87 H 03/06/20 14:45 102 H 182/101 H 03/06/20 14:26 99 190/92 H 03/06/20 14:00 91 03/06/20 12:52 94 18 170/79 H 96 03/06/20 12:00 95 03/06/20 09:55 128 H 03/06/20 08:40 105 H 20 97 03/06/20 08:38 36.4 C L 105 H 20 158/96 H 97 03/06/20 08:00 101 H 03/06/20 06:00 91 03/06/20 04:00 36.0 C L 99 20 146/86 H 97 03/06/20 02:00 94 03/06/20 00:00 95 20 98 03/05/20 23:53 36.6 C 95 20 146/83 H 98 03/05/20 22:00 83 03/05/20 20:00 90 24 H 97 03/05/20 19:57 36.1 C L 90 24 H 136/79 97 03/05/20 18:00 94 Intake/Output Intake/Output: Intake & Output 03/03/20 03/04/20 03/05/20 03/06/20 23:59 23:59 23:59 23:59 Intake Total 2300 1500 0 Output Total 10 2654 150 100 Balance 2290 -1154 -150 -100 Meds/Results Medications: Active Medications Generic Name Dose Route Start Last Admin Trade Name Freq PRN Reason Stop Dose Admin Acetaminophen 650 mg 03/01/20 08:58 Tylenol Tablet PO
--- NOTE | 2020-03-06 17:51 | WPDINFPN2 ---
Progress Note: A&P Additional Plan 1. Acute osteomyelitis of the right calcaneal bone. Completed 43 days of IV antibiotics currently off antibiotic therapy. 2. Erythroderma and rash due to vancomycin allergy minimal change. 3. End-stage renal disease on hemodialysis left neck hemodialysis catheter sites clean. 4. Type 2 diabetes maintain adequate blood sugar control. Subjective Date/time seen: 03/06/20 17:51 Exam Neck: Other: SUPPLE. Left-sided hemodialysis catheter in place. No surrounding erythema. Resp: Other: Good bilateral air entry noted on the wheeze. Cardio: Other: Positive S1 and positive S2. GI: Other: Positive bowel sound nontender. Skin: Other: Diffuse erythema of the torso and upper extremity no change. Neuro: Other: Alert awake not in distress. Extrem: Other: Trace edema bilaterally. Objective Data Vital Signs Vital Signs: Vital Signs - 24 hr 03/05/20 18:00 03/05/20 19:57 03/05/20 20:00 Temperature 36.1 C L Pulse Rate 94 90 90 Respiratory Rate 24 H 24 H Blood Pressure 136/79 Pulse Oximetry 97 97 03/05/20 22:00 03/05/20 23:53 03/06/20 00:00 Temperature 36.6 C Pulse Rate 83 95 95 Respiratory Rate 20 20 Blood Pressure 146/83 H Pulse Oximetry 98 98 03/06/20 02:00 03/06/20 04:00 03/06/20 06:00 Temperature 36.0 C L Pulse Rate 94 99 91 Respiratory Rate 20 Blood Pressure 146/86 H Pulse Oximetry 97 03/06/20 08:00 03/06/20 08:38 03/06/20 08:40 Temperature 36.4 C L Pulse Rate 101 H 105 H 105 H Respiratory Rate 20 20 Blood Pressure 158/96 H Pulse Oximetry 97 97 03/06/20 09:55 03/06/20 12:00 03/06/20 12:52 Temperature Pulse Rate 128 H 95 94 Respiratory Rate 18 Blood Pressure 170/79 H Pulse Oximetry 96 03/06/20 14:00 03/06/20 14:26 03/06/20 14:45 Temperature Pulse Rate 91 99 102 H Respiratory Rate Blood Pressure 190/92 H 182/101 H Pulse Oximetry 03/06/20 15:00 03/06/20 15:15 03/06/20 15:30 Temperature Pulse Rate 103 H 103 H 104 H Respiratory Rate Blood Pressure 157/87 H 157/87 H 123/79 Pulse Oximetry 03/06/20 16:00 Temperature Pulse Rate 104 H Respiratory Rate Blood Pressure Pulse Oximetry Intake/Output Intake/Output: Intake & Output 03/03/20 03/04/20 03/05/20 03/06/20 23:59 23:59 23:59 23:59 Intake Total 2300 1500 0 Output Total 10 6154 150 300 Balance 0930 -1154 -150 -300 Meds/Results Medications: Active Medications Generic Name Dose Route Start Last Admin Trade Name Freq PRN Reason Stop Dose Admin Acetaminophen 650 mg 03/01/20 08:58 Tylenol Tablet PO Q6H PRN Mild Pain (1-3) Or Fever Aspirin 325 mg 03/07/20 09:00 Aspirin Ec PO 03/31/20 09:01 DAILY [facility] Clotrimazole 1 applic 03/05/20 21:00 03/06/20 08:35 Lotrisone Cream TOPICAL 1 applic Q12HR [facility] Administration Cyanocobalamin 1,000 mcg 04/01/20 09:00 Vitamin B-12 Inj IM MONTHLY [facility] Dextrose 12.5 gm 03/03/20 08:02 Dextrose 50% Syringe IV PUSH PRN PRN Hypoglycemia Protocol Diphenhydramine HCl 25 mg 03/01/20 12:53 03/01/20 13:59 Benadryl Inj IV PUSH 25 mg Q8H PRN Administration Allergic Reaction Epoetin Caesar-epbx 10,000 units 03/06/20 19:50 Retacrit IV PUSH 03/06/20 19:51 ONCE ONE Ergocalciferol 50,000 unit 03/05/20 09:00 03/05/20 09:02 Drisdol PO Not Given Th@0900 [facility] Escitalopram Oxalate 10 mg 03/01/20 09:00 03/06/20 08:17 Lexapro PO Not Given DAILY [facility] Famotidine 20 mg 03/02/20 12:30 03/06/20 08:35 Pepcid Iv IV PUSH 20 mg DAILY [facility] Administration Glucagon 1 mg 03/03/20 08:02 Glucagon For Inj IM PRN PRN Hypoglycemia Protocol Glucose 15 gm 03/03/20 08:02 Glutose 15 PO PRN PRN Hypoglycemia Protocol Heparin Sodium (Porcine) 5,000 units 03/06/20 21:00 Heparin Sodium SUB-Q Q12HR [facility] Hydralazine HCl 5 mg
[2020-03-06 18:38] LABS: Glucose Point of Care 252 (65-105)
[2020-03-06 19:29] LABS: SARS-CoV-2 RNA PCR Negative
[2020-03-06] MEDS: HEPARIN SODIUM 5,000 UNITS/ML VIAL 5000 UNITS SUB-Q (20:40)
[2020-03-06] MEDS: methylPREDNISolone SOD SUCC 40 MG VIAL IV PUSH (23:05)
[2020-03-06 23:21] LABS: Glucose Point of Care 291 (65-105)
[2020-03-07] VITALS (32 sets, daily range): BP systolic 118–187; BP diastolic 53–97; PULSE 74–104; RESP 12–20; TEMP 36.1–37; O2SAT 93–100
[2020-03-07 05:18] LABS: Hematocrit 24.4 % (42.0-52.0); Hemoglobin 8.1 g/dL (14.0-18.0); Mean Corpuscular HGB Conc 33.2 g/dl (32-36); Mean Corpuscular Hemoglobin 26.7 pg (26-34); Mean Corpuscular Volume 80.5 fl (80-100); Mean Platelet Volume 10.5 fl (7.4-10.4); Platelet Count Result 190 k/mm3 (150-375); Red Blood Count 3.03 M/mm3 (4.6-6.20); Red Cell Distribution Width 18.3 % (11.5-14.5); White Blood Count 14.8 K/mm3 (4.5-10.0)
[2020-03-07 05:53] LABS: Alanine Aminotransferase 101 U/L (4-50); Albumin Level 2.4 g/dL (3.5-5.1); Alkaline Phosphatase 378 U/L (38-126); Anion Gap 9 mmol/L (8-16); Aspartate Amino Transferase 31 U/L (17-59); Bilirubin,Total 0.8 mg/dL (0.2-1.3); Blood Urea Nitrogen 73 mg/dL (9-20); Calcium 6.8 mg/dL (8.4-10.2); Carbon Dioxide 26 mmol/L (22-30); Chloride 100 mmol/L (98-107); Estimated CRCL calculation 18 ml/min; Estimated Glomerular Filt Rate 15; Glucose 300 mg/dL (75-110); Magnesium 2.4 mg/dL (1.6-2.3); Potassium 4.6 mmol/L (3.4-5.0); Sodium 135 mmol/L (137-145)
[2020-03-07] MEDS: methylPREDNISolone SOD SUCC 40 MG VIAL IV PUSH ×3 (06:03→20:52)
[2020-03-07] MEDS: INSULIN ASPART (*BKC) 100 UNITS/ML SUB-Q ×3 (06:07→18:39)
[2020-03-07 06:13] LABS: Glucose Point of Care 300 (65-105)
[2020-03-07] MEDS: INSULIN GLARGINE (*BKC) 100 UNITS/ML 23 UNITS SUB-Q (07:53)
[2020-03-07] MEDS: HEPARIN SODIUM 5,000 UNITS/ML VIAL 5000 UNITS SUB-Q ×2 (07:54→20:50)
[2020-03-07] MEDS: BETAMETHASONE/CLOTRIMAZOLE CR 45 GM TUBE 1 APPLIC TOPICAL ×2 (07:55→20:49)
[2020-03-07] MEDS: FAMOTIDINE 20 MG/2 ML VIAL IV PUSH (07:55)
[2020-03-07] MEDS: TOLNAFTATE 1% POWDER 45 GM BTL 1 APPLIC TOPICAL ×2 (07:56→20:50)
--- NOTE | 2020-03-07 12:42 | WPDNEURCNPN ---
Assessment and Plan Assessment and plan (1) Acute osteomyelitis of right calcaneus: Code(s): M86.171 - Other acute osteomyelitis, right ankle and foot Status: Acute (2) Sepsis: Code(s): A41.9 - Sepsis, unspecified organism Status: Acute (3) Rash: Code(s): R21 - Rash and other nonspecific skin eruption Status: Acute (4) Microscopic hematuria: Code(s): R31.29 - Other microscopic hematuria Status: Acute (5) Acute kidney injury: Code(s): N17.9 - Acute kidney failure, unspecified Status: Acute (6) Bladder wall thickening: Code(s): N32.89 - Other specified disorders of bladder Status: Acute (7) Red man syndrome: Code(s): L27.0 - Generalized skin eruption due to drugs and medicaments taken internally Status: Acute (8) Acute kidney injury: Code(s): N17.9 - Acute kidney failure, unspecified Status: Acute (9) Altered mental status: Code(s): R41.82 - Altered mental status, unspecified Status: Acute (10) Pneumonia: Code(s): J18.9 - Pneumonia, unspecified organism Status: Acute (11) Colitis: Code(s): K52.9 - Noninfective gastroenteritis and colitis, unspecified Status: Acute (12) DVT prophylaxis: Code(s): Z29.9 - Encounter for prophylactic measures, unspecified Status: Acute (13) Transaminitis: Code(s): R74.0 - Nonspecific elevation of levels of transaminase and lactic acid dehydrogenase [LDH] Status: Acute (14) UTI (urinary tract infection): Qualifiers: Urinary tract infection type: acute cystitis Hematuria presence: without hematuria Qualified Code(s): N30.00 - Acute cystitis without hematuria Code(s): N39.0 - Urinary tract infection, site not specified Status: Acute (15) Urine retention: Code(s): R33.9 - Retention of urine, unspecified Status: Acute (16) Essential hypertension: Code(s): I10 - Essential (primary) hypertension Status: Chronic (17) CVA (cerebral vascular accident): Qualifiers: CVA mechanism: unspecified Qualified Code(s): I63.9 - Cerebral infarction, unspecified Code(s): I63.9 - Cerebral infarction, unspecified Status: Chronic (18) Type 1 diabetes mellitus: Qualifiers: Diabetes mellitus complication status: with hyperglycemia Qualified Code(s): E10.65 - Type 1 diabetes mellitus with hyperglycemia Code(s): E10.9 - Type 1 diabetes mellitus without complications Status: Chronic (19) Closed fracture of right acetabulum: Qualifiers: Encounter type: initial encounter Fracture alignment: nondisplaced Sublocation of acetabulum: unspecified portion of acetabulum Qualified Code(s): S32.401A - Unspecified fracture of right acetabulum, initial encounter for closed fracture Code(s): S32.401A - Unspecified fracture of right acetabulum, initial encounter for closed fracture Status: Acute (20) Fall: Qualifiers: Encounter type: initial encounter Qualified Code(s): W19.XXXA - Unspecified fall, initial encounter Code(s): W19.XXXA - Unspecified fall, initial encounter Status: Acute Additional Plan will obtain the EEG at a later date Consult date: 03/08/20 Time Seen: 12:42 HPI: Ubaldo Velasquez is a 60 year old male Admitted to the hospital with ongoing diagnosis of renal failure, pneumonia, osteomyelitis, and vasculitis underwent wound debridement and treated with vancomycin initially presented to the emergency room with a suspected red man syndrome from vancomycin which was discontinued on initial evaluation he was found to have BUN of 57 with creatinine of 5 which was attributed to vancomycin as his renal functions were good in May of 2019 and was seen by pan greaser of further recommendations he was also found to have elevated liver enzymes with low albumin. Subsequently he was evaluated by the urolog
[2020-03-07 12:47] LABS: Glucose Point of Care 233 (65-105)
[2020-03-07] MEDS: EPOETIN ALFA-EPBX 10,000 UNITS/ML VIAL 10000 UNITS IV PUSH (14:06)
--- NOTE | 2020-03-07 15:02 | P.PNNP_ITS ---
Progress Note: A&P Assessment and Plan (1) Acute kidney injury: Code(s): N17.9 - Acute kidney failure, unspecified Status: Acute Assessment and Plan: * etiology not clear... * evaluation to date demonstrates: - low C3 but normal C4 - negative DHRUV and dsDNA-ab - negative antiGBM-ab - negative hepatitis studies - negative SPE, UPE, and kappa/lamda ratio - pending Cryo and ANCA - renal ultrasound normal * due to worsening acidosis and possible uremia, initiated on dialysis/[employer] * suspect possible acute interstitial nephritis - drug rash on admission thought to be secondary vancomycin reaction - no peripheral eosinophilia on differential of CBC - urine eosinophils negative - however, if this is the case, he is already getting IV steroids for potential treatment * perhaps relative hypotension is more to blame - low BP/perfusion may explain the insult to his kidneys as well as elevated LFTs on admission as well.... * HD today (although suspect elevated BUN secondary to steroid use) due to only partial treatment yesterday * follow repeat labs and UOP to assess for potential renal recovery (2) Altered mental status: Code(s): R41.82 - Altered mental status, unspecified Status: Acute Assessment and Plan: * seems to be a bit better * Neurology consulted/following * follow mentation (3) Transaminitis: Code(s): R74.0 - Nonspecific elevation of levels of transaminase and lactic acid dehydrogenase [LDH] Status: Acute Assessment and Plan: * appears to be improving * etiology? (4) CVA (cerebral vascular accident): Qualifiers: CVA mechanism: unspecified Qualified Code(s): I63.9 - Cerebral infarction, unspecified Code(s): I63.9 - Cerebral infarction, unspecified Status: Chronic Assessment and Plan: * chronic issue * no intervention needed (5) Essential hypertension: Code(s): I10 - Essential (primary) hypertension Status: Chronic Assessment and Plan: * despite history, running on the low side on admission * BP seems to be doing better now * follow hemodynamics (6) Type 1 diabetes mellitus: Qualifiers: Diabetes mellitus complication status: with hyperglycemia Qualified Code(s): E10.65 - Type 1 diabetes mellitus with hyperglycemia Code(s): E10.9 - Type 1 diabetes mellitus without complications Status: Chronic Assessment and Plan: * follow accuchecks * on Lantus and SSI Will continue to follow. Subjective Date/time seen: 03/07/20 15:02 Rash and skin appear to be improving each day; mentation seems about the same; no issues.events overnight; receiving HD again today as he only had a partial treatment yesterday due to technical issues with HD machine. Exam Narrative: Exam Narrative: General: WD/WN male in NAD Heart: normal S1 and S2; no rub Lungs: decreased at bases Abdomen: soft, nontender, nondistended, positive bowel sounds Extremities: no cyanosis or clubbing; no edema Skin: warm and intact; rash better Objective Data Vital Signs Vital Signs: Vital Signs Temp Pulse Resp BP Pulse Ox 03/07/20 14:45 103 H 118/58 L 03/07/20 14:30 74 135/56 L 03/07/20 14:15 100 122/57 L 03/07/20 14:05 93 03/07/20 14:00 104 H 145/53 H
--- NOTE | 2020-03-07 15:02 | PM.PNNEP ---
Progress Note: A&P Assessment and Plan (1) Acute kidney injury: Code(s): N17.9 - Acute kidney failure, unspecified Status: Acute Assessment and Plan: etiology not clear... evaluation to date demonstrates: - low C3 but normal C4 - negative DHRUV and dsDNA-ab - negative antiGBM-ab - negative hepatitis studies - negative SPE, UPE, and kappa/lamda ratio - pending Cryo and ANCA - renal ultrasound normal due to worsening acidosis and possible uremia, initiated on dialysis/[employer] suspect possible acute interstitial nephritis - drug rash on admission thought to be secondary vancomycin reaction - no peripheral eosinophilia on differential of CBC - urine eosinophils negative - however, if this is the case, he is already getting IV steroids for potential treatment perhaps relative hypotension is more to blame - low BP/perfusion may explain the insult to his kidneys as well as elevated LFTs on admission as well.... HD today (although suspect elevated BUN secondary to steroid use) due to only partial treatment yesterday follow repeat labs and UOP to assess for potential renal recovery (2) Altered mental status: Code(s): R41.82 - Altered mental status, unspecified Status: Acute Assessment and Plan: seems to be a bit better Neurology consulted/following follow mentation (3) Transaminitis: Code(s): R74.0 - Nonspecific elevation of levels of transaminase and lactic acid dehydrogenase [LDH] Status: Acute Assessment and Plan: appears to be improving etiology? (4) CVA (cerebral vascular accident): Qualifiers: CVA mechanism: unspecified Qualified Code(s): I63.9 - Cerebral infarction, unspecified Code(s): I63.9 - Cerebral infarction, unspecified Status: Chronic Assessment and Plan: chronic issue no intervention needed (5) Essential hypertension: Code(s): I10 - Essential (primary) hypertension Status: Chronic Assessment and Plan: despite history, running on the low side on admission BP seems to be doing better now follow hemodynamics (6) Type 1 diabetes mellitus: Qualifiers: Diabetes mellitus complication status: with hyperglycemia Qualified Code(s): E10.65 - Type 1 diabetes mellitus with hyperglycemia Code(s): E10.9 - Type 1 diabetes mellitus without complications Status: Chronic Assessment and Plan: follow accuchecks on Lantus and SSI Will continue to follow. Subjective Date/time seen: 03/07/20 15:02 Rash and skin appear to be improving each day; mentation seems about the same; no issues.events overnight; receiving HD again today as he only had a partial treatment yesterday due to technical issues with HD machine. Exam Narrative: Exam Narrative: General: WD/WN male in NAD Heart: normal S1 and S2; no rub Lungs: decreased at bases Abdomen: soft, nontender, nondistended, positive bowel sounds Extremities: no cyanosis or clubbing; no edema Skin: warm and intact; rash better Objective Data Vital Signs Vital Signs: Vital Signs Temp Pulse Resp BP Pulse Ox 03/07/20 14:45 103 H 118/58 L 03/07/20 14:30 74 135/56 L 03/07/20 14:15 100 122/57 L 03/07/20 14:05 93 03/07/20 14:00 104 H 145/53 H 03/07/20 13:45 102 H 135/74 03/07/20 13:41 97 03/07/20 13:30 96 141/60 H 03/07/20 13:15 94 158/59 H 03/07/20 13:00 100 145/71 H 03/07/20 12:45 90 165/87 H 03/07/20 12:30 82 143/68 H 03/07/20 12:15 92 185/61 H 03/07/20 12:00 95 187/87 H 03/07/20 11:57 84 176/87 H 03/07/20 11:45 36.1 C L 90 14 151/83 H 03/07/20 09:43 84 03/07/20 08:00 36.1 C L 85 12 150/79 H 99 03/07/20 05:53 89 03/07/20 04:00 36.6 C 100 16 151/90 H 97 03/07/20 02:00 95 03/07/20 00:00 98 16 99 03/06/20 23:2
[2020-03-07] MEDS: HEPARIN SODIUM 1,000 UNITS/ML VIAL 1000 UNITS IV PUSH (15:10)
--- NOTE | 2020-03-07 16:12 | PCSTNOTE ---
Pt was more alert today, able to answer yes/no questions, but refused speech therapy.
--- NOTE | 2020-03-07 18:35 | PM.IMPN ---
Progress Note: A&P Assessment and Plan (1) Altered mental status: Code(s): R41.82 - Altered mental status, unspecified Status: Acute Assessment and Plan: 60 year old male with history of type 1 diabetes poorly controlled status post CVA with confusion difficulty with the speech patient has been seen by orthopedic surgeon and had a wound debridement was concern for osteomyelitis and patient is treated with vancomycin and presented emergency department with generalized rash and petechiae and emergency physician suspected the patient has red man syndrome from vancomycin, vancomycin is stopped now being treated with a Zosyn for osteomyelitis, is also found to have acute kidney injury complicated case. ID, and nephrology rounding. Pt receiving dialysis to clear. Pt is a DNR. Pt is off vasopressors, only on iv steroids now, no IV antibiotics. Nurse attempted to place NG tube and start tube feeds unfortunately NG coiled up. Radiological guided NG tube placement was ordered, but pt developed neurological changes upward gaze so stat CT head was ordered ? CVA Please note pts Bp and sugars has been running up and we need to control this better. go to continue dialysis today patient daughter is planning for hospice. (2) Acute kidney injury: Code(s): N17.9 - Acute kidney failure, unspecified Status: Acute Assessment and Plan: Dialysis to clear, receiving dialysis past 2-3 days (3) Red man syndrome: Code(s): L27.0 - Generalized skin eruption due to drugs and medicaments taken internally Status: Acute Assessment and Plan: Patient is treated with Benadryl and Pepcid, ID rounding on patient. Pt rash appear better today pt being seen by wound team. ? livedo reticularis and contact dermatitis mixed picture (4) Transaminitis: Code(s): R74.0 - Nonspecific elevation of levels of transaminase and lactic acid dehydrogenase [LDH] Status: Acute Assessment and Plan: Patient with significantly elevated liver function etiology uncertain Subjective Date/time seen: 03/07/20 18:35 60 year old male with history of type 1 diabetes poorly controlled status post CVA with confusion difficulty with the speech patient has been seen by orthopedic surgeon and had a wound debridement was concern for osteomyelitis and patient is treated with vancomycin and presented emergency department with generalized rash and petechiae and emergency physician suspected the patient has red man syndrome from vancomycin, vancomycin is stopped now being treated with a Zosyn for osteomyelitis, is also found to have acute kidney injury complicated case. ID, and nephrology rounding. Pt receiving dialysis to clear. Pt is a DNR. Pt is off vasopressors, only on iv steroids now, no IV antibiotics. Nurse attempted to place NG tube and start tube feeds unfortunately NG coiled up. Radiological guided NG tube placement was ordered, but pt developed neurological changes upward gaze so stat CT head was ordered ? CVA Please note pts Bp and sugars has been running up and we need to control this better. today again patient is quite somnolent, I spoke with patient daughter is considering hospice care for the patient, patient is and contact hospice team and scheduled to meet with them tomorrow. Review of Systems Review of Systems: All systems reviewed & are unremarkable except as noted in HPI and below Exam Const: General: comfortable and no acute distress HENMT: General nose exam: Normal nares present Mouth: Yes moist mucous membranes Eyes: Sclera: sclerae normal Neck: Neck: supple Resp: Other: bilateral poor air entry with rhonchi Cardio: Rate: regular rate Rhythm: regular rhythm GI: Auscultation: normal bowel sounds Skin: General skin exam: normal color Neuro: Other: patient is quite somnolent Extrem: General: normal to inspection Psych: Other: patient is quite somnolent Objective Data Vital Signs
[2020-03-07 18:39] LABS: Glucose Point of Care 225 (65-105)
[2020-03-08] VITALS (12 sets, daily range): BP systolic 145–167; BP diastolic 67–98; PULSE 78–93; RESP 18–20; TEMP 35.9–36.5; O2SAT 94–100
[2020-03-08 00:26] LABS: Glucose Point of Care 248 (65-105)
[2020-03-08] MEDS: INSULIN ASPART (*BKC) 100 UNITS/ML SUB-Q ×4 (00:27→18:08)
[2020-03-08 04:59] LABS: Hematocrit 26.3 % (42.0-52.0); Hemoglobin 8.6 g/dL (14.0-18.0); Mean Corpuscular HGB Conc 32.7 g/dl (32-36); Mean Corpuscular Hemoglobin 26.5 pg (26-34); Mean Corpuscular Volume 81.2 fl (80-100); Mean Platelet Volume 10.7 fl (7.4-10.4); Platelet Count Result 170 k/mm3 (150-375); Red Blood Count 3.24 M/mm3 (4.6-6.20); Red Cell Distribution Width 17.9 % (11.5-14.5); White Blood Count 11.8 K/mm3 (4.5-10.0)
[2020-03-08 06:08] LABS: Glucose Point of Care 284 (65-105)
[2020-03-08 06:32] LABS: Alanine Aminotransferase 88 U/L (4-50); Albumin Level 2.5 g/dL (3.5-5.1); Alkaline Phosphatase 368 U/L (38-126); Anion Gap 7 mmol/L (8-16); Aspartate Amino Transferase 22 U/L (17-59); Bilirubin,Total 0.6 mg/dL (0.2-1.3); Blood Urea Nitrogen 60 mg/dL (9-20); Calcium 7.5 mg/dL (8.4-10.2); Carbon Dioxide 26 mmol/L (22-30); Chloride 103 mmol/L (98-107); Estimated CRCL calculation 22 ml/min; Estimated Glomerular Filt Rate 19; Glucose 294 mg/dL (75-110); Potassium 4.9 mmol/L (3.4-5.0); Sodium 136 mmol/L (137-145)
[2020-03-08] MEDS: methylPREDNISolone SOD SUCC 40 MG VIAL IV PUSH ×3 (06:37→20:30)
[2020-03-08] MEDS: TOLNAFTATE 1% POWDER 45 GM BTL 1 APPLIC TOPICAL ×2 (08:48→20:31)
[2020-03-08] MEDS: FAMOTIDINE 20 MG/2 ML VIAL IV PUSH (08:48)
[2020-03-08] MEDS: INSULIN GLARGINE (*BKC) 100 UNITS/ML 23 UNITS SUB-Q (08:48)
[2020-03-08] MEDS: HEPARIN SODIUM 5,000 UNITS/ML VIAL 5000 UNITS SUB-Q ×2 (08:48→20:30)
[2020-03-08] MEDS: BETAMETHASONE/CLOTRIMAZOLE CR 45 GM TUBE 1 APPLIC TOPICAL ×2 (08:48→20:31)
[2020-03-08 13:17] LABS: Glucose Point of Care 305 (65-105)
--- NOTE | 2020-03-08 15:45 | PM.PNNEP ---
Progress Note: A&P Assessment and Plan (1) Acute kidney injury: Code(s): N17.9 - Acute kidney failure, unspecified Status: Acute Assessment and Plan: etiology not clear... evaluation to date demonstrates: - low C3 but normal C4 - negative DHRUV and dsDNA-ab - negative antiGBM-ab - negative hepatitis studies - negative SPE, UPE, and kappa/lamda ratio - pending Cryo and ANCA - renal ultrasound normal due to worsening acidosis and possible uremia, initiated on dialysis/[employer] suspect possible acute interstitial nephritis - drug rash on admission thought to be secondary vancomycin reaction - no peripheral eosinophilia on differential of CBC - urine eosinophils negative - however, if this is the case, he is already getting IV steroids for potential treatment perhaps relative hypotension is more to blame - low BP/perfusion may explain the insult to his kidneys as well as elevated LFTs on admission as well.... HD yestedayday (although suspect elevated BUN secondary to steroid use) due to only partial treatment on Monday urine output better today -- consider holding HD tomorrow follow repeat labs and UOP to assess for potential renal recovery (2) Altered mental status: Code(s): R41.82 - Altered mental status, unspecified Status: Acute Assessment and Plan: seems to be a bit better Neurology consulted/following follow mentation (3) Transaminitis: Code(s): R74.0 - Nonspecific elevation of levels of transaminase and lactic acid dehydrogenase [LDH] Status: Acute Assessment and Plan: appears to be improving etiology? (4) CVA (cerebral vascular accident): Qualifiers: CVA mechanism: unspecified Qualified Code(s): I63.9 - Cerebral infarction, unspecified Code(s): I63.9 - Cerebral infarction, unspecified Status: Chronic Assessment and Plan: chronic issue no intervention needed (5) Essential hypertension: Code(s): I10 - Essential (primary) hypertension Status: Chronic Assessment and Plan: despite history, running on the low side on admission BP seems to be doing better now follow hemodynamics (6) Type 1 diabetes mellitus: Qualifiers: Diabetes mellitus complication status: with hyperglycemia Qualified Code(s): E10.65 - Type 1 diabetes mellitus with hyperglycemia Code(s): E10.9 - Type 1 diabetes mellitus without complications Status: Chronic Assessment and Plan: follow accuchecks on Lantus and SSI Extensive discussion with daughter Yee by phone (> 20 minutes) regarding renal failure, better urine output, possible renal recovery and possibility of holding dialysis; she seems to be leaning toward hospice since he had another CVA; will see what happens in the next 24 hours with regard to urine output and labs in the AM regarding if dialysis needed tomorrow. Will continue to follow. Subjective Date/time seen: 03/08/20 15:45 Tolerated dialysis yesterday without any issue or problem -- skin and rash have improved with steroid therapy; mentation seems better and more talkative; no apparent distress noted. Exam Narrative: Exam Narrative: General: WD/WN male in NAD Heart: normal S1 and S2; no rub Lungs: decreased at bases Abdomen: soft, nontender, nondistended, positive bowel sounds Extremities: no cyanosis or clubbing; no edema Skin: no nodules; rash better Objective Data Vital Signs Vital Signs: Vital Signs Temp Pulse Resp BP Pulse Ox 03/08/20 14:47 94 03/08/20 09:56 80 03/08/20 08:00 78 03/08/20 07:39 35.9 C L 79 20 150/79 H 100 03/08/20 06:00 80 03/08/20 04:45 36.1 C L 80 20 167/98 H 100 03/08/20 04:00 80 20 100 03/08/20 02:00 79 03/08/20 00:00 87 18 99 03/07/20 23:58 36.3 C L 87 18 151/97 H 99 03/07/20 22:00 81 03/07
[2020-03-08 16:25] LABS: Cryoglobulin, QL Negative (Negative)
--- NOTE | 2020-03-08 17:22 | PM.IMPN ---
Progress Note: A&P Assessment and Plan (1) Altered mental status: Code(s): R41.82 - Altered mental status, unspecified Status: Acute Assessment and Plan: 60 year old male with history of type 1 diabetes poorly controlled status post CVA with confusion difficulty with the speech patient has been seen by orthopedic surgeon and had a wound debridement was concern for osteomyelitis and patient is treated with vancomycin and presented emergency department with generalized rash and petechiae and emergency physician suspected the patient has red man syndrome from vancomycin, vancomycin is stopped now being treated with a Zosyn for osteomyelitis, is also found to have acute kidney injury complicated case. ID, and nephrology rounding. Pt receiving dialysis to clear. Pt is a DNR. Pt is off vasopressors, only on iv steroids now, no IV antibiotics. Nurse attempted to place NG tube and start tube feeds unfortunately NG coiled up. Radiological guided NG tube placement was ordered, but pt developed neurological changes upward gaze so stat CT head was ordered ? CVA Please note pts Bp and sugars has been running up and we need to control this better. I again today spoke with the patient's daughter Yee and she has spoken with hospice team, plan is to transfer the patient under hospice care nursing, also spoke with the nephrology, plan is to monitor patient kidney function and does not need any dialysis. (2) Acute kidney injury: Code(s): N17.9 - Acute kidney failure, unspecified Status: Acute Assessment and Plan: Dialysis to clear, receiving dialysis past 2-3 days (3) Red man syndrome: Code(s): L27.0 - Generalized skin eruption due to drugs and medicaments taken internally Status: Acute Assessment and Plan: Patient is treated with Benadryl and Pepcid, ID rounding on patient. Pt rash appear better today pt being seen by wound team. ? livedo reticularis and contact dermatitis mixed picture (4) Transaminitis: Code(s): R74.0 - Nonspecific elevation of levels of transaminase and lactic acid dehydrogenase [LDH] Status: Acute Assessment and Plan: Patient with significantly elevated liver function etiology uncertain Subjective Date/time seen: 60 year old male with history of type 1 diabetes poorly controlled status post CVA with confusion difficulty with the speech patient has been seen by orthopedic surgeon and had a wound debridement was concern for osteomyelitis and patient is treated with vancomycin and presented emergency department with generalized rash and petechiae and emergency physician suspected the patient has red man syndrome from vancomycin, vancomycin is stopped now being treated with a Zosyn for osteomyelitis, is also found to have acute kidney injury complicated case. ID, and nephrology rounding. Pt receiving dialysis to clear. Pt is a DNR. Pt is off vasopressors, only on iv steroids now, no IV antibiotics. Nurse attempted to place NG tube and start tube feeds unfortunately NG coiled up. Radiological guided NG tube placement was ordered, but pt developed neurological changes upward gaze so stat CT head was ordered ? CVA Please note pts Bp and sugars has been running up and we need to control this better. I again today spoke with the patient's daughter Yee and she has spoken with hospice team, plan is to transfer the patient under hospice care nursing, also spoke with the nephrology, plan is to monitor patient kidney function and does not need any dialysis. Objective Data Vital Signs Vital Signs: Vital Signs - 24 hr 03/07/20 18:00 03/07/20 19:44 03/07/20 20:00 Temperature 97.3 F L Pulse Rate 100 87 87 Respiratory Rate 12 12 Blood Pressure 147/79 H Pulse Oximetry 97 97 03/07/20 22:00 03/07/20 23:58 03/08/20 00:00 Temperature 97.3 F L Pulse Rate 81 87 87 Respiratory Rate 18 18 Blood Pressure 151/97 H Pulse Oximetry 99 99 03/08/20 02:00 02/09
[2020-03-08 18:12] LABS: Glucose Point of Care 283 (65-105)
[2020-03-08 23:40] LABS: Glucose Point of Care 232 (65-105)
[2020-03-09] VITALS: PULSE 90; RESP 18
[2020-03-09] MEDS: INSULIN ASPART (*BKC) 100 UNITS/ML SUB-Q ×3 (00:24→12:47)
[2020-03-09 04:55] VITALS: BP 106/70; PULSE 81; RESP 20; TEMP 36.4; O2SAT 99
[2020-03-09] MEDS: methylPREDNISolone SOD SUCC 40 MG VIAL IV PUSH ×2 (05:11→12:47)
[2020-03-09 05:14] LABS: Glucose Point of Care 262 (65-105)
[2020-03-09 05:34] LABS: Hematocrit 28.1 % (42.0-52.0); Mean Corpuscular Hemoglobin 26.3 pg (26-34); Mean Corpuscular Volume 82.2 fl (80-100); Mean Platelet Volume 11.5 fl (7.4-10.4); Platelet Count Result 181 k/mm3 (150-375); Red Blood Count 3.42 M/mm3 (4.6-6.20); Red Cell Distribution Width 18.4 % (11.5-14.5); White Blood Count 9.7 K/mm3 (4.5-10.0)
[2020-03-09 05:49] LABS: Potassium 4.9 mmol/L (3.4-5.0)
[2020-03-09 05:54] LABS: Alanine Aminotransferase 80 U/L (4-50); Albumin Level 2.5 g/dL (3.5-5.1); Alkaline Phosphatase 370 U/L (38-126); Anion Gap 8 mmol/L (8-16); Aspartate Amino Transferase 24 U/L (17-59); Bilirubin,Total 0.8 mg/dL (0.2-1.3); Blood Urea Nitrogen 82 mg/dL (9-20); Calcium 7.2 mg/dL (8.4-10.2); Carbon Dioxide 25 mmol/L (22-30); Chloride 103 mmol/L (98-107); Estimated CRCL calculation 17 ml/min; Estimated Glomerular Filt Rate 14; Glucose 266 mg/dL (75-110); Sodium 136 mmol/L (137-145)
[2020-03-09 08:00] VITALS: BP 108/88; PULSE 92; RESP 18; TEMP 35.6; O2SAT 100
[2020-03-09 08:08] LABS: Glucose Point of Care 250 (65-105)
[2020-03-09] MEDS: FAMOTIDINE 20 MG/2 ML VIAL IV PUSH (08:37)
[2020-03-09] MEDS: INSULIN GLARGINE (*BKC) 100 UNITS/ML 23 UNITS SUB-Q (08:37)
[2020-03-09] MEDS: HEPARIN SODIUM 5,000 UNITS/ML VIAL 5000 UNITS SUB-Q (08:37)
[2020-03-09] MEDS: TOLNAFTATE 1% POWDER 45 GM BTL 1 APPLIC TOPICAL (08:37)
[2020-03-09] MEDS: BETAMETHASONE/CLOTRIMAZOLE CR 45 GM TUBE 1 APPLIC TOPICAL (08:37)
--- NOTE | 2020-03-09 09:16 | PM.PNNEP ---
Progress Note: A&P Assessment and Plan (1) Acute kidney injury: Code(s): N17.9 - Acute kidney failure, unspecified Status: Acute Assessment and Plan: etiology not clear... evaluation to date demonstrates: - barely low C3 but normal C4 - negative DHRUV and dsDNA-ab - negative antiGBM-ab and negative cryo - negative hepatitis studies - negative SPE, UPE, and kappa/lamda ratio - pending ANCA - renal ultrasound normal consider allergic interstitial nephritis since he had a rash. perhaps relative hypotension is more to blame - low BP/perfusion may explain the insult to his kidneys as well as elevated LFTs on admission as well.... HD Monday urine output is fair. today his creatinine is higher than yesterday. But yesterday was artificially low because of the dialysis on Monday. So we will check another creatinine tomorrow to see the trend. If it continues to worsen then we will do another dialysis. family and patient are also discussing aggressiveness of care. (2) Altered mental status: Code(s): R41.82 - Altered mental status, unspecified Status: Acute Assessment and Plan: seems to be a bit better Neurology consulted/following follow mentation (3) Transaminitis: Code(s): R74.0 - Nonspecific elevation of levels of transaminase and lactic acid dehydrogenase [LDH] Status: Acute Assessment and Plan: appears to be improving etiology? (4) CVA (cerebral vascular accident): Qualifiers: CVA mechanism: unspecified Qualified Code(s): I63.9 - Cerebral infarction, unspecified Code(s): I63.9 - Cerebral infarction, unspecified Status: Chronic Assessment and Plan: chronic issue no intervention needed (5) Essential hypertension: Code(s): I10 - Essential (primary) hypertension Status: Chronic Assessment and Plan: despite history, running on the low side on admission BP seems to be doing better no (6) Type 1 diabetes mellitus: Qualifiers: Diabetes mellitus complication status: with hyperglycemia Qualified Code(s): E10.65 - Type 1 diabetes mellitus with hyperglycemia Code(s): E10.9 - Type 1 diabetes mellitus without complications Status: Chronic Assessment and Plan: follow accuchecks on Lantus and SSI Additional Plan Subjective Date/time seen: 03/09/20 09:16 Interval history: Patient is awake. Feels okay he says. No shortness of breath. Review of Systems Cardiovascular: Cardiovascular: Reports no additional cardiovascular complaints Respiratory: Respiratory: Reports no additional respiratory complaints Gastrointestinal: Gastrointestinal: Reports no additional gastrointestinal complaints Genitourinary: Genitourinary: Reports no additional male genitourinary complaints Exam Narrative: Exam Narrative: Well developed well-nourished gentleman who is very weak and lying in hospital bed. Skin is warm and dry without rash lungs are clear heart regular without rub abdomen bowel sounds positive soft nontender extremities trace to1+ edema Objective Data Vital Signs Vital Signs: Vital Signs - 24 hr 03/08/20 09:56 03/08/20 14:47 03/08/20 16:05 Temperature 36.4 C L Pulse Rate 80 90 Respiratory Rate 20 Blood Pressure 145/77 H Pulse Oximetry 94 99 03/08/20 20:00 03/08/20 23:19 03/09/20 00:00 Temperature 36.5 C Pulse Rate 93 90 Respiratory Rate 20 18 Blood Pressure 154/67 H Pulse Oximetry 98 98 03/09/20 04:55 Temperature 36.4 C Pulse Rate 81 Respiratory Rate 20 Blood Pressure 106/70 Pulse Oximetry 99 Intake/Output Intake/Output: Intake & Output 03/06/20 03/07/20 03/08/20 03/09/20 23:59 23:59 23:59 23:59 Intake Total 0 0 Output Total 9276 925 525 350 Balance -1506 -925 -525 -350 Meds/Results Medications: Active Medications Generi
--- NOTE | 2020-03-09 12:04 | PM.DS ---
DS: Admitting Diagnosis Admitting Diagnosis Admitting Diagnosis: renal failure,pneumonia,osteomyelitis,vaculitis vs DS: Discharge Diagnosis Discharge Diagnosis (1) Altered mental status: Code(s): R41.82 - Altered mental status, unspecified Status: Acute Assessment and Plan: 60 year old male with history of type 1 diabetes poorly controlled status post CVA with confusion difficulty with the speech patient has been seen by orthopedic surgeon and had a wound debridement was concern for osteomyelitis and patient is treated with vancomycin and presented emergency department with generalized rash and petechiae and emergency physician suspected the patient has red man syndrome from vancomycin, vancomycin is stopped now being treated with a Zosyn for osteomyelitis, is also found to have acute kidney injury complicated case. ID, and nephrology rounding. Pt receiving dialysis to clear. Pt is a DNR. Pt is off vasopressors, only on iv steroids now, no IV antibiotics. Nurse attempted to place NG tube and start tube feeds unfortunately NG coiled up. Radiological guided NG tube placement was ordered, but pt developed neurological changes upward gaze so stat CT head was ordered ? CVA Please note pts Bp and sugars has been running up and we need to control this better. I again today spoke with the patient's daughter Yee and she has spoken with hospice team, plan is to transfer the patient under hospice care nursing, also spoke with the nephrology, plan is to monitor patient kidney function and does not need any dialysis. (2) Acute kidney injury: Code(s): N17.9 - Acute kidney failure, unspecified Status: Acute Assessment and Plan: Dialysis to clear, receiving dialysis past 2-3 days (3) Red man syndrome: Code(s): L27.0 - Generalized skin eruption due to drugs and medicaments taken internally Status: Acute Assessment and Plan: Patient is treated with Benadryl and Pepcid, ID rounding on patient. Pt rash appear better today pt being seen by wound team. ? livedo reticularis and contact dermatitis mixed picture (4) Transaminitis: Code(s): R74.0 - Nonspecific elevation of levels of transaminase and lactic acid dehydrogenase [LDH] Status: Acute Assessment and Plan: Patient with significantly elevated liver function etiology uncertain DS: Summary Hospital Course Reason for hospitalization: Chief complaint: renal failure,pneumonia,osteomyelitis,vaculitis vs Narrative: Ubaldo Velasquez is a 60 year old male with history of type 1 diabetes poorly controlled status post CVA with confusion difficulty with the speech patient has been seen by orthopedic surgeon and had a wound debridement was concern for osteomyelitis and patient is treated with vancomycin and presented emergency department with generalized rash and petechiae and emergency physician suspected the patient has red man syndrome from vancomycin, vancomycin is stopped not being treated with a Zosyn for osteomyelitis, is also found to acute kidney injury with BUN 57 and creatinine of 5 most likely secondary to vancomycin his kidney function was essentially normal in May of 2019, patient is seen by commissary representative further recommendation to follow. patient is also having dysphagia, is NPO, below the modified swallow study tomorrow. patient with significantly elevated liver function etiology uncertain, his INR is slightly elevated and albumin is low, acute hepatitis panel is negative for infection, will monitor liver function, will do liver ultrasound to further evaluate Hospital Course: 60 year old male with history of type 1 diabetes poorly controlled status post CVA with confusion difficulty with the speech patient has been seen by orthopedic surgeon and had a wound debridement was concern for osteomyelitis and patient is treated with vancomycin and presented emergency department with generalized rash and petechiae and emergency physic
--- NOTE | 2020-03-09 12:15 | WPDINFPN2 ---
Progress Note: A&P Assessment and Plan (1) Acute osteomyelitis of right calcaneus: Code(s): M86.171 - Other acute osteomyelitis, right ankle and foot Status: Acute Assessment and Plan: 1. Acute OM of R calcaneus, 43 days treatment, now off 2. Erythroderma and rash due to vancomycin allergy. not red man syndrome 3. DM 4. Renal failure REC Off antibiotics. BCs final ng. Outpatient followup with my colleague in [place]. Will sign off, thanks Subjective Date/time seen: 03/09/20 12:15 Interval history: non verbal, though does attempt to communicate Exam Narrative: Exam Narrative: afebrile Const: General: no acute distress Eyes: General: appearance normal, both eyes and all related structures Resp: Effort & Inspection: normal respiratory effort Auscultation: clear to auscultation bilaterally and diminished lung sounds Cardio: Rate: regular rate Rhythm: regular rhythm Heart sounds: no murmurs GI: GI Palp: Yes Firmness to palpation present (GI) and No Tenderness to palpation present (GI) Skin: General skin exam: erythema Rashes: rashes noted Other: both the erythroderma and the maculopapular rash are less marked Objective Data Vital Signs Vital Signs: Vital Signs - 24 hr 03/08/20 14:47 03/08/20 16:05 03/08/20 20:00 Temperature 36.4 C L 36.5 C Pulse Rate 90 93 Respiratory Rate 20 20 Blood Pressure 145/77 H 154/67 H Pulse Oximetry 94 99 98 03/08/20 23:19 03/09/20 00:00 03/09/20 04:55 Temperature 36.4 C Pulse Rate 90 81 Respiratory Rate 18 20 Blood Pressure 106/70 Pulse Oximetry 98 99 Intake/Output Intake/Output: Intake & Output 03/06/20 03/07/20 03/08/20 03/09/20 23:59 23:59 23:59 23:59 Intake Total 0 0 Output Total 6526 925 525 350 Balance -1506 -925 -525 -350 Meds/Results Medications: Active Medications Generic Name Dose Route Start Last Admin Trade Name Freq PRN Reason Stop Dose Admin Clotrimazole 1 applic 03/06/20 21:00 03/09/20 08:37 Lotrisone Cream TOPICAL 1 applic Q12HR [facility] Administration Cyanocobalamin 1,000 mcg 04/01/20 09:00 Vitamin B-12 Inj IM MONTHLY [facility] Dextrose 12.5 gm 03/03/20 08:02 Dextrose 50% Syringe IV PUSH PRN PRN Hypoglycemia Protocol Diphenhydramine HCl 25 mg 03/01/20 12:53 03/01/20 13:59 Benadryl Inj IV PUSH 25 mg Q8H PRN Administration Allergic Reaction Epoetin Caesar-epbx 10,000 units 03/09/20 19:23 Retacrit IV PUSH 03/09/20 19:24 ONCE ONE Famotidine 20 mg 03/02/20 12:30 03/09/20 08:37 Pepcid Iv IV PUSH 20 mg DAILY [facility] Administration Glucagon 1 mg 03/03/20 08:02 Glucagon For Inj IM PRN PRN Hypoglycemia Protocol Glucose 15 gm 03/03/20 08:02 Glutose 15 PO PRN PRN Hypoglycemia Protocol Heparin Sodium (Porcine) 5,000 units 03/06/20 21:00 03/09/20 08:37 Heparin Sodium SUB-Q 5,000 units Q12HR [facility] Administration Hydralazine HCl 5 mg 03/06/20 15:38 Apresoline Hcl Inj IV PUSH Q8H PRN Blood Pressure - High SBP over Dextrose 1,000 mls @ 100 mls/hr 03/01/20 09:27 Dextrose 5% 1,000 Ml IVPB PRN PRN Hypoglycemia Protocol Albumin Human 50 mls @ 999 mls/hr 03/02/20 12:19 03/03/20 12:35 Albutein IVPB 04/01/20 12:20 999 mls/hr Q10M PRN Administration HYPOTENSION Insulin Aspart 4 - 8 units 03/03/20 12:00 03/09/20 05:11 Novolog SUB-Q 5 units Q6H [facility] Administration Protocol Insulin Glargine 23 units 03/07/20 09:00 03/09/20 08:37 Lantus SUB-Q 23 units DAILY [facility] Administration Methylprednisolone Sodium Succinate 40 mg 03/06/20 22:00 03/09/20 05:11 Solu-Medrol IV PUSH 40 mg Q8HR [facility] Administration Morphine Sulfate 4 mg 03/01/20 06:31 03/05/20 09:29 Morphine Sulfate Inj IV PUSH 4 mg Q2H PRN Administration Pain Rated 7-10 Promethazine HCl 12.5 mg 03/01/20 06:31 Phenergan Inj IV PUSH Q6H P
[2020-03-09 12:25] LABS: Glucose Point of Care 252 (65-105)
--- NOTE | 2020-03-09 13:13 | PCDIET ---
Nutrition Follow-Up Complete: Nutrition Diagnosis: Inadequate oral intake related to dysphagia/multiple medical issues as evidenced by NPO status. Nutrition Goal: Patient to meet estimated nutritional needs. Goal not met. Patient remains NPO with plan for discharge on hospice. If plan of care changes and aggressive nutritional therapy is desired, consult RD for tube feeding recommendations. Last recorded weight is 82kg which is down from last review. Bowel Motility: Last documented BM on 03/06/20. If medically appropriate, may consider adding medication to promote BM for comfort. Labs Reviewed: Hgb (9.0), Hct (28.1), Glu (250), BUN (82), Cr (4.2), Na (136), Alb (2.5) Meds Noted: Albumin, Vitamin B12, Retacrit, Pepcid, Novolog, Lantus, Solu Medrol, Morphine Additional Notes: Back abrasion and bilateral foot wounds documented. Will continue to monitor with same goal. Nutrition Monitoring and Evaluation: Follow up every 3 days.
[2020-03-09 16:16] LABS: SARS-CoV-2 RNA PCR Negative
[2020-03-11 20:18] LABS: ANCA Screen Negative (Negative)
--- NOTE | 2020-03-24 15:47 | PM.PNGS ---
Progress Note: A&P Assessment and Plan (1) Acute kidney injury: Code(s): N17.9 - Acute kidney failure, unspecified Status: Acute (2) Admission for fitting and adjustment of vascular catheter: Code(s): Z45.2 - Encounter for adjustment and management of vascular access device Status: Acute Assessment and Plan: Left IJ Steve catheter removed without difficulty. Subjective Subjective Date/Time Seen: 03/09/20 16:47 Patient needs Steve catheter removed. Exam Neck: Neck: other (Left IJ Steve catheter noted) Objective Data Meds/Results Radiology Results: ITS Impressions Abdomen/Pelvis CT 03/01/20 13:02 IMPRESSION: 1. Rectal wall thickening which could reflect colitis or possibly neoplasm. Recommend correlation with colonoscopy history. 2. Circumferential bladder wall thickening which can be seen in the setting of cystitis or chronic outlet obstruction. 3. Bilateral lymphadenopathy, likely reactive. 4. Small pleural effusions with bibasilar atelectasis. Renal Ultrasound 03/01/20 14:27 IMPRESSION: 1. Normal kidneys without hydronephrosis. 2. Apparent wall thickening of the bladder which could reflect cystitis or chronic outlet obstruction. Foot X-Ray 03/02/20 14:02 IMPRESSION: 1. Extensive erosions of right calcaneal tuberosity, consistent with osteomyelitis. Upper Quadrant Ultrasound 03/03/20 15:09 IMPRESSION: 1: Hepatic steatosis. Chest X-Ray 03/04/20 08:19 IMPRESSION: 1. Airspace opacities in the lower lung zones with slight worsening on the left, consistent with atelectasis versus pneumonia. Head CT 03/06/20 13:17 IMPRESSION: 1. 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 2. 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 Age related findings.
== END 2020-03-09 17:14 | disposition hospice, home (50) | DRG 871 ==
LOC: ANHED 06:43 → ANHIMU 13:06 → ANHICU 03-02 12:22 → ANHIMU 03-09 12:04 → ANH3MEDSUR 03-11 16:59 → ANHICU 03-11 16:59 → ANHIMU 03-11 16:59
PROVIDERS: Family Medicine; Internal Medicine; Internal Medicine Nephrology; Admitting Provider Internal Medicine; Emergency Provider Emergency Medicine; PCP Internal Medicine; Visit Provider Family Medicine
DX: A41.9 Sepsis, unspecified organism (principal); J18.9 Pneumonia, unspecified organism; N17.9 Acute kidney failure, unspecified; M86.171 Other acute osteomyelitis, right ankle and foot; E10.65 Type 1 diabetes mellitus with hyperglycemia; I69.320 Aphasia following cerebral infarction; I69.398 Other sequelae of cerebral infarction; L27.1 Localized skin eruption due to drugs and medicaments taken internally; T36.8X5A Adverse effect of other systemic antibiotics, initial encounter; Z20.828 Contact with and (suspected) exposure to other viral communicable diseases
CPT/HCPCS: 36415; 36600; 51701; 70450; 71045; 73620; 74176; 76705; 76775; 80048; 80053; 80069; 80074; 81001; 82436; 82570; 82595; 82805; 83520; 83605; 83735; 83880; 83883; 84100; 84155; 84156; 84165; 84166; 84300; 85025; 85027; 85610; 85730; 85999; 86021; 86038; 86160; 86225; 86706; 87040; 87086; 87635; 92526; 92610; 93005; 93306; 99285; A9270; C1751; C1752; C9803; G0257; J1200; J1644; J1815; J2270; J2543; J2920; J2930; J7030; J7040; J7050; P9047; Q5106; U0003